=== PATIENT | male | born 1955 | race Caucasian/White ===

== ENCOUNTER 2023-02-15 12:12 | Inpatient (IN) | payer MEDICARE, MEDICAID, SELFPAY ==
[2023-02-15] VITALS (12 sets, daily range): BP systolic 88–116; BP diastolic 35–79; PULSE 83–115; RESP 16–20; TEMP 36.1–39.2; O2SAT 93–98; BMI 37.7
--- NOTE | ~2023-02-15 | CT_ITS ---
EXAMINATION: CT CHEST WITHOUT CONTRAST CLINICAL INFORMATION: Fever. Altered mental status. COMPARISON: Chest x-ray dated 02/15/2023. TECHNIQUE: Multidetector volumetric CT imaging of the chest was obtained noncontrast. Sagittal and coronal reformations were obtained. This CT examination was performed using dose optimization techniques as appropriate, variously including the following: *Automated exposure control *Adjustment of mA and/or kV according to patient size (this includes techniques or standardized protocols for targeted exams where dose is matched to indication/reason for exam; i.e. extremities or head) *Use of iterative reconstruction technique DLP: 734.30 mGy-cm. FINDINGS: LUNGS: Lungs slight thickening of the central small airways is seen with patchy areas of subtle groundglass opacity in the lungs, likely representing a diffuse viral or atypical pneumonia/bronchitis. Dependent atelectasis in the inferior aspect of the left lower lobe is seen. No significant dense consolidation is seen. No focal lung nodule or mass. No effusion or pneumothorax. Central airways patent. LYMPHOVASCULAR STRUCTURES: Ascending aorta is borderline aneurysmal, measuring 4 cm in maximal diameter just proximal to the aortic arch. Heart size normal. No pericardial effusion. No mediastinal, hilar or axillary adenopathy or free fluid collection. CORONARY ARTERY CALCIFICATION: Severe coronary artery calcifications are seen primarily involving the left anterior descending coronary artery. THYROID GLAND: Unremarkable to the extent included. UPPER ABDOMEN: Multiple gallstones are seen within the gallbladder, which is otherwise unremarkable. Diffuse pancreatic parenchymal atrophy and fatty infiltration is seen in the included portions of the pancreas. Multiple calcified granulomas are noted in the spleen. Included portions of the solid organs in the upper abdomen otherwise unremarkable. BONES: Diffuse osteopenia. 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 No suspicious focal findings. CT/CT chest wo IV con IMPRESSION: 1. Above described lung findings may be due to diffuse viral or atypical pneumonia/bronchitis. 2. Borderline aneurysmal ascending aorta. 3. Severe coronary artery calcifications. 4. Cholelithiasis with no evidence of acute cholecystitis. 5. Diffuse pancreatic parenchymal atrophy and fatty infiltration. 6. Osteopenia with findings suspicious for ankylosing spondylitis.
--- NOTE | ~2023-02-15 | CT_ITS ---
EXAMINATION: CT abdomen pelvis w IV con CLINICAL INFORMATION: Reason for Exam fever, ams COMPARISON: No prior CT available for comparison. TECHNIQUE: Multidetector volumetric imaging was performed from the superior aspect of the liver through the pubic symphysis IV contrast injected. Sagittal and coronal reformatted images were obtained on the technologist's workstation. This CT examination was performed using dose optimization techniques as appropriate, variously including the following: *Automated exposure control *Adjustment of mA and/or kV according to patient size (this includes techniques or standardized protocols for targeted exams where dose is matched to indication/reason for exam; i.e. extremities or head) *Use of iterative reconstruction technique DLP: 2331 mGy-cm FINDINGS: LOWER THORAX: Mild atelectasis at left lung base. HEPATOBILIARY: No focal hepatic lesions. No biliary ductal dilatation. GALLBLADDER: There are multiple gallstones. SPLEEN: There are calcified granulomas, spleen mildly enlarged measuring 14.1 cm. PANCREAS: Pancreas is atrophic. No pancreatic mass. STOMACH AND GASTROINTESTINAL TRACT: Stomach is grossly unremarkable. There is no bowel distention or thickening. There is diverticulosis without evidence of acute diverticulitis. ADRENALS: No adrenal nodules. KIDNEYS/URETERS: There is left perinephric fat stranding, subtle loss of normal cortical medullary distinction of the left kidney raising concern for nephritis. There is no evidence of nephroma or abscess at this time. This has especially involving the upper half of the left kidney. There is 5 mm nonobstructing stone upper calyx. No kidney stone or hydronephrosis. Right kidney unremarkable. URINARY BLADDER: There is circumferential wall thickening of the urinary bladder combined with mild pericystic fat stranding, although nonspecific commonly associated with chronic outflow obstruction or cystitis. PELVIC VISCERA: Unremarkable PERITONEUM: No free air or fluid. LYMPH NODES: No lymphadenopathy. VASCULAR:There are aortic vascular calcifications. No aneurysm. BONES, ABDOMINAL WALL AND SOFT TISSUES: Age-appropriate changes of the spine and skeletal system, no destructive osteolytic or osteosclerotic bone lesion found CT/CT abdomen pelvis w IV con IMPRESSION: * There is left perinephric fat stranding, subtle loss of normal cortical medullary distinction of the left kidney raising concern for underlying diffuse cortical process including possible infection nephritis. There is no evidence of nephroma or abscess at this time. This has especially involving the upper half of the left kidney. * There is 5 mm nonobstructing stone upper calyx left kidney. * There is circumferential wall thickening thickened trabeculation of the urinary bladder combined with mild pericystic fat stranding, although nonspecific commonly associated with chronic outflow obstruction or cystitis. * Diverticulosis without evidence of acute diverticulitis. * Cholelithiasis. * Splenomegaly.
--- NOTE | ~2023-02-15 | CT_ITS ---
EXAMINATION: CT HEAD WITHOUT CONTRAST CLINICAL INFORMATION: Altered mental status. Nonverbal. COMPARISON: None available. TECHNIQUE: Contiguous axial imaging was performed from the skull base to vertex without intravenous administration of contrast. This CT examination was performed using dose optimization techniques as appropriate, variously including the following: *Automated exposure control *Adjustment of mA and/or kV according to patient size (this includes techniques or standardized protocols for targeted exams where dose is matched to indication/reason for exam; i.e. extremities or head) *Use of iterative reconstruction technique DLP: 739 mGy-cm FINDINGS: No intracranial hemorrhage, extra-axial fluid collection, focal mass effect or midline shift. There is atherosclerotic calcification of cavernous carotid arteries. No evidence of a dense cerebral artery sign. The mishra-white matter differentiation is maintained. No acute major vascular territory infarction. There appears to be mild patchy hypoattenuation within supratentorial white matter; this is compatible with sequela of mild microangiopathy. Kkby-vl-[id number] parenchymal volume loss with commensurate prominence of ventricles and sulci. No acute findings within the posterior fossa. The cerebellar tonsils are in normal position. Small amount mucus is seen along the posterior wall of the left maxillary sinus and posterior wall of sphenoid sinus. No air-fluid levels within the paranasal sinuses. The temporomandibular joints and orbits are unremarkable. CT/CT head/brain wo IV con IMPRESSION: No intracranial mass, hemorrhage or other acute intracranial pathology.
--- NOTE | ~2023-02-15 | XR_ITS ---
EXAMINATION: XR chest 1V CLINICAL INFORMATION: Reason for Exam fever COMPARISON: None TECHNIQUE: XR chest 1V Tubes and lines: None Lungs and pleura: Mild interstitial and peribronchial cuffing might be small airway disease, no dense focal consolidation lobar pneumonia. Blunting of left costophrenic angle possible underlying subpulmonic pleural effusion. Heart and mediastinum: Heart and mediastinum are widened exaggerated by AP technique.. Bones/soft tissue: Skeletal structures included are normal for patient's age. XR/XR chest 1V IMPRESSION: * Mild interstitial and peribronchial cuffing might be small airway disease. * No dense focal consolidation lobar pneumonia. * Blunting of left costophrenic angle possible underlying subpulmonic pleural effusion.
--- NOTE | 2023-02-15 12:20 | ED_ITS ---
HPI - General Adult General Chief complaint: Fever Stated complaint: INCR AMS,FEVER 102.7 X24 HRS,FROM SNF PER EMS Time Seen by Provider: 02/15/23 12:15 Source: patient, EMS, RN notes reviewed and old records reviewed History of Present Illness HPI narrative: 67-year-old male with a past medical history of dementia, schizophrenia, COPD, AFib, obesity, HTN, HLD, dysphagia, hemiplegia and hemiparesis s/p CVA, presenting to the ED via EMS from [facility] for temp 102.9 degrees, increasing lethargy, tachycardia and being nonverbal since yesterday. Given Tylenol T[employer]. Remaining history limited due to patient's acute mental status Onset (ago): day(s) Related Data Home Medications Medication Instructions Recorded Confirmed atorvastatin 10 mg tablet 10 mg PO BEDTIME 02/15/23 02/15/23 divalproex 250 mg tablet,delayed 500 mg PO BID 02/15/23 02/15/23 release divalproex 250 mg tablet,delayed 750 mg PO BEDTIME 02/15/23 02/15/23 release finasteride 5 mg tablet 5 mg PO DAILY 02/15/23 02/15/23 multivitamin 1 tab PO DAILY 02/15/23 02/15/23 oxazepam 15 mg capsule 15 mg PO BEDTIME 02/15/23 02/15/23 rivaroxaban 15 mg tablet (Xarelto) 15 mg PO DAILY@1800 02/15/23 02/15/23 tamsulosin 0.4 mg capsule 0.4 mg PO BEDTIME 02/15/23 02/15/23 Allergies Allergy/AdvReac Type Severity Reaction Status Date / Time No Known Allergies Allergy Verified 02/15/23 12:30 Review of Systems Review of Systems: Constitutional: + Fever, + Fatigue, + Malaise Neuro: +AMS ROS limited due to patient's acute mental status Yes all other systems are reviewed and are negative Constitutional: Constitutional: Reports as per HPI Neurologic: Reports confusion (Does not know President) Psychiatric: Psychiatric: Reports confusion (Does not know President) [facility] Past Medical History Attestation statement: The following information was validated with the patient. Social History Social History Advance Directives: No Advance Directives Information Provided: No Physical Exam ED Vital Signs: Vital Signs - 24 hr 02/15/23 12:22 02/15/23 13:25 02/15/23 12:48 Temperature 102.5 F H Pulse Rate 112 H 112 H 105 H Respiratory Rate 20 20 Blood Pressure 94/61 94/61 109/60 Pulse Oximetry 93 93 93 Oxygen Delivery Method Room Air Room Air Room Air 02/15/23 14:40 02/15/23 15:47 02/15/23 15:03 Temperature Pulse Rate 86 Respiratory Rate 16 Blood Pressure 116/61 94/55 L 105/61 Pulse Oximetry 95 Oxygen Delivery Method Room Air 02/15/23 15:35 Temperature Pulse Rate Respiratory Rate Blood Pressure 107/50 L Pulse Oximetry Oxygen Delivery Method BMI result Body Mass Index 37.7 Const Other: Easily arousable General: cooperative, no acute distress, confusion (Does not know President) and lethargic Orientation/consciousness: oriented to person, oriented to place, oriented to time, confusion (Does not know President) and lethargic Limitations: no limitations HENMT Head: Yes normal to inspection and Yes atraumatic Ears: hearing grossly normal bilaterally General nose exam: Normal external nose present Face and sinus: Yes normal facial exam Eyes General: appearance normal, both eyes and all related structures EOM: EOMs intact bilaterally Neck Neck: Yes normal visual inspection and Yes no meningeal signs Resp Effort & Inspection: normal respiratory effort and no respiratory distress Auscultation: diminished lung sounds bilateral in the lower lung rosenberg Cardio Rate: regular rate Heart sounds: S1 normal heart sound present and S2 normal heart sound present GI Inspection: Yes normal to inspection Palpation (GI): Soft to palpation, nontender, no guarding and not rigid Skin Rashes: no rashes Wounds: no wounds Neuro General: oriented to person, oriented to place, oriented to time, tone normal, moves all extremities, no meningeal signs, no focal motor deficits, CN's II-XI intact bilaterally and confusion (Does not know President) Extrem Other: + bilateral LE 1+ pitting edema Course Course Course Narrative: -1339--noted leukocytosis of 22.1. H&H stable. BUN mildly elevated. Lactic acid 2.9 -AST mildly elevated. BNP 224, troponin 40.7 > will obtain 3 hour repeat -1423--COVID-19/influenza/RSV negative XR chest 1V IMPRESSION: *? Mild interstitial and peribronchial cuffing might be small airway disease. *? No dense focal consolidation lobar pneumonia. *? Blunting of left costophrenic angle possible underlying subpulmonic pleural effusion. ? > will obtain CT chest/abdomen/pelvis for further evaluation CT head/brain wo IV con IMPRESSION: No intracranial mass, hemorrhage or other acute intracranial pathology. CT chest wo IV con IMPRESSION: 1.? Above described lung findings may be due to diffuse viral or atypical pneumonia/bronchitis. 2.? Borderline aneurysmal ascending aorta. 3.? Severe coronary artery calcifications. 4.? Cholelithiasis with no evidence of acute cholecystitis. 5.? Diffuse pancreatic parenchymal atrophy and fatty infiltration. 6.? Osteopenia with findings suspicious for ankylosing spondylitis. CT abdomen pelvis w IV con IMPRESSION:? *? There is left perinephric fat stranding, subtle loss of normal cortical medullary distinction of the left kidney raising concern for underlying diffuse cortical process including possible infection nephritis. There is no evidence of nephroma or abscess at this time. This has especially involving the upper half of the left kidney. ? *? There is 5 mm nonobstructing stone upper calyx left kidney. ? *? There is circumferential wall thickening thickened trabeculation of the urinary bladder combined with mild pericystic fat stranding, although nonspecific commonly associated with chronic outflow obstruction or cystitis. ? *? Diverticulosis without evidence of acute diverticulitis. ? *? Cholelithiasis. ? *? Splenomegaly. ? >> plan to admit for further management -1704--UA infected Medications Administered Generic Name Dose Route Start Last Admin Trade Name Freq PRN Reason Stop Dose Admin Sodium Chloride 1,000 mls @ 75 mls/hr 02/15/23 13:45 02/15/23 14:30 Ns IVCONT 75 mls/hr .[id number] JES Administration Discontinued Medications Generic Name Dose Route Start Last Admin Trade Name Freq PRN Reason Stop Dose Admin Acetaminophen 650 mg 02/15/23 12:30 02/15/23 13:11 Acetaminophen 325 Mg Tablet PO 02/15/23 12:31 650 mg ONCE ONE Administration Sodium Chloride 1,000 mls @ 999 mls/hr 02/15/23 12:30 02/15/23 14:30 Ns IV 02/15/23 13:30 Infused .[id number] JES Infusion Cefepime HCl 2 gm/ Sodium 50 mls @ 100 mls/hr 02/15/23 12:32 02/15/23 13:48 Chloride IV 02/15/23 13:01 Infused ONCE ONE Infusion Iohexol 85 ml 02/15/23 15:24 02/15/23 15:24 Iohexol 350 Mg/Ml 100 Ml Infus..Btl IV 02/15/23 15:25 85 ml ONCE ONE Administration Medical Decision Making Medical Decision Making MDM Narrative: 67-year-old male with a past medical history of dementia, schizophrenia, COPD, AFib, obesity, HTN, HLD, dysphagia, hemiplegia and hemiparesis s/p CVA, pres enting to the ED via EMS from [facility] for temp 102.9 degrees, increasing lethargy, tachycardia and being nonverbal since yesterday. On exam febrile to 102.5, tachycardic, lethargic, easily arousable, A&O x3, mildly confused, warm to touch, lungs are diminished lung sounds bibasilar, abdomen soft/nontender. Concern for infectious etiology including pneumonia vs UTI vs viral syndrome. Lower suspicion for intra-abdominal pathology at this time. Low suspicion for CVA Plan: EKG, labs, UA, CXR, head CT, lactic/blood cultures, IVF, IV antibiotics, admission Please refer to course for remaining clinical decision making, interpretation of labs/imaging results, and discussions with consultants and/or family members. Differential Diagnosis Differential Diagnoses: The differential diagnosis associated with the presentation includes As above Admission/Observation Consideration of admission/observation: Escalation of care including admission/observation considered Lab Data MDM Lab Attestation statement: I reviewed the patient's lab results. 02/15/23 12:49 02/15/23 12:49 Labs: Lab Results 02/15/23 02/15/23 02/15/23 Range/Units 12:34 12:41 12:46 WBC (4.8-10.8) X10*3/uL RBC (4.60-5.80) X10*6/uL Hgb (14.0-18.0) g/dl Hct (42.0-52.0) % MCV (80.0-98.0) fL MCH (27.0-33.0) pg MCHC (31.0-36.0) g/dl RDW (11.0-16.0) % Plt Count (160-400) X10*3/uL MPV (9.4-12.4) fL Immature Gran % (Auto) Neut % (Auto) Lymph % (Auto) [place] % (Auto) Eos % (Auto) Baso % (Auto) Lymph # (Auto) [place] # (Auto) Eos # (Auto) Baso # (Auto) Abs Immat Gran (auto) Absolute Neuts (auto) Absolute Nucleated RBC (0.0-0.012) X10*3/uL Nucleated RBC % (auto) (0.0-0.2) /100WBC Neutrophils % (Manual) (45-73) % Band Neutrophils % (3-5) % Lymphocytes % (Manual) (20-40) % Monocytes % (Manual) (2-11) % Abs Neuts (Manual) (2.0-8.3) X10*3/uL Lymphocytes # (Manual) (1.2-4.9) X10*3/uL Monocytes # (Manual) (0.1-1.2) X10*3/uL Toxic Vacuolation Platelet Estimate (NORMAL) Plt Morphology Comment RBC Morphology PT (10.0-13.1) SEC INR (0.9-1.1) Sodium (135-145) mmol/L Potassium (3.3-5.1) mmol/L Chloride (96-108) mmol/L Carbon Dioxide (22-29) mmol/L Anion Gap (12-20) BUN (9-16) mg/dL Creatinine (0.5-1.4) mg/dL Estim Creat Clear Calc Estimated GFR POC Glucose 134 H (60-115) mg/dL Random Glucose (60-115) mg/dL Lactic Acid 2.9 H* (0.5-2.0) mmol/L Lactic Acid F/U @ 2Hr (0.5-2.0) mmol/L Calcium (8.4-10.2) mg/dL Magnesium (1.6-2.6) mg/dL Total Bilirubin (0.0-1.0) mg/dL Direct Bilirubin (0.0-0.5) mg/dL AST (5-37) U/L ALT (0-40) U/L Alkaline Phosphatase (39-117) U/L Troponin I High Sens (<3.5-35.0) ng/L B-Natriuretic Peptide (<100) pg/mL Total Protein (6.5-8.0) g/dL Albumin (3.5-5.0) g/dL Lipase (8-78) U/L Urine Color Urine Appearance Urine pH (5.0-9.0) Ur Specific Dag[place] (1.005-1.025) Urine Protein (Neg-Trace) mg/dL Urine Glucose (UA) (Negative) mg/dL Urine Ketones (Negative) mg/dL Urine Blood (Negative) Urine Nitrite (Negative) Ur Leukocyte Esterase (Negative) Urine RBC (0-2) /HPF Urine WBC (0-5) /HPF Ur Squamous Epith Cells (0-2) /HPF Urine Bacteria (None Seen) Hyaline Casts (0-2) /LPF Influenza Type A (PCR) NEGATIVE (Negative) Influenza Type B (PCR) NEGATIVE (Negative) RSV RNA Qual (PCR) NEGATIVE (Negative) SARS-CoV-2 RNA (RT-PCR) NEGATIVE (Negative) 02/15/23 02/15/23 02/15/23 Range/Units 12:46 12:49 12:49 WBC 22.1 H (4.8-10.8) X10*3/uL RBC 4.47 L (4.60-5.80) X10*6/uL Hgb 13.3 L (14.0-18.0) g/dl Hct 40.6 L (42.0-52.0) % MCV 90.8 (80.0-98.0) fL MCH 29.8 (27.0-33.0) pg MCHC 32.8 (31.0-36.0) g/dl RDW 17.1 H (11.0-16.0) % Plt Count 156 L (160-400) X10*3/uL MPV 9.6 (9.4-12.4) fL Immature Gran % (Auto) Cancelled Neut % (Auto) Cancelled Lymph % (Auto) Cancelled [place] % (Auto) Cancelled Eos % (Auto) Cancelled Baso % (Auto) Cancelled Lymph # (Auto) Cancelled [place] # (Auto) Cancelled Eos # (Auto) Cancelled Baso # (Auto) Cancelled Abs Immat Gran (auto) Cancelled Absolute Neuts (auto) Cancelled Absolute Nucleated RBC 0.000 (0.0-0.012) X10*3/uL Nucleated RBC % (auto) 0.0 (0.0-0.2) /100WBC Neutrophils % (Manual) 53 (45-73) % Band Neutrophils % 8 H (3-5) % Lymphocytes % (Manual) 29 (20-40) % Monocytes % (Manual) 10 (2-11) % Abs Neuts (Manual) 13.5 H (2.0-8.3) X10*3/uL Lymphocytes # (Manual) 6.4 H (1.2-4.9) X10*3/uL Monocytes # (Manual) 2.2 H (0.1-1.2) X10*3/uL Toxic Vacuolation PRESENT Platelet Estimate SLIGHTLY DECREASED (NORMAL) Plt Morphology Comment NORMAL RBC Morphology NORMAL PT (10.0-13.1) SEC INR (0.9-1.1) Sodium 139 (135-145) mmol/L Potassium 3.8 (3.3-5.1) mmol/L Chloride 107 (96-108) mmol/L Carbon Dioxide 21 L (22-29) mmol/L Anion Gap 15 (12-20) BUN 19 H (9-16) mg/dL Creatinine 1.13 (0.5-1.4) mg/dL Estim Creat Clear Calc 88.2 Estimated GFR > 60 POC Glucose (60-115) mg/dL Random Glucose 145 H (60-115) mg/dL Lactic Acid (0.5-2.0) mmol/L Lactic Acid F/U @ 2Hr (0.5-2.0) mmol/L Calcium 8.3 L (8.4-10.2) mg/dL Magnesium 1.6 (1.6-2.6) mg/dL Total Bilirubin 0.9 (0.0-1.0) mg/dL Direct Bilirubin 0.2 (0.0-0.5) mg/dL AST 45 H (5-37) U/L ALT 12 (0-40) U/L Alkaline Phosphatase 35 L (39-117) U/L Troponin I High Sens 40.7 H (<3.5-35.0) ng/L B-Natriuretic Peptide (<100) pg/mL Total Protein 7.7 (6.5-8.0) g/dL Albumin 3.2 L (3.5-5.0) g/dL Lipase 12 (8-78) U/L Urine Color Urine Appearance Urine pH (5.0-9.0) Ur Specific Dag[place] (1.005-1.025) Urine Protein (Neg-Trace) mg/dL Urine Glucose (UA) (Negative) mg/dL Urine Ketones (Negative) mg/dL Urine Blood (Negative) Urine Nitrite (Negative) Ur Leukocyte Esterase (Negative) Urine RBC (0-2) /HPF Urine WBC (0-5) /HPF Ur Squamous Epith Cells (0-2) /HPF Urine Bacteria (None Seen) Hyaline Casts (0-2) /LPF Influenza Type A (PCR) (Negative) Influenza Type B (PCR) (Negative) RSV RNA Qual (PCR) (Negative) SARS-CoV-2 RNA (RT-PCR) (Negative) 02/15/23 02/15/23 02/15/23 Range/Units 12:49 16:11 16:11 WBC (4.8-10.8) X10*3/uL RBC (4.60-5.80) X10*6/uL Hgb (14.0-18.0) g/dl Hct (42.0-52.0) % MCV (80.0-98.0) fL MCH (27.0-33.0) pg MCHC (31.0-36.0) g/dl RDW (11.0-16.0) % Plt Count (160-400) X10*3/uL MPV (9.4-12.4) fL Immature Gran % (Auto) Neut % (Auto) Lymph % (Auto) [place] % (Auto) Eos % (Auto) Baso % (Auto) Lymph # (Auto) [place] # (Auto) Eos # (Auto) Baso # (Auto) Abs Immat Gran (auto) Absolute Neuts (auto) Absolute Nucleated RBC (0.0-0.012) X10*3/uL Nucleated RBC % (auto) (0.0-0.2) /100WBC Neutrophils % (Manual) (45-73) % Band Neutrophils % (3-5) % Lymphocytes % (Manual) (20-40) % Monocytes % (Manual) (2-11) % Abs Neuts (Manual) (2.0-8.3) X10*3/uL Lymphocytes # (Manual) (1.2-4.9) X10*3/uL Monocytes # (Manual) (0.1-1.2) X10*3/uL Toxic Vacuolation Platelet Estimate (NORMAL) Plt Morphology Comment RBC Morphology PT 18.1 H (10.0-13.1) SEC INR 1.6 H (0.9-1.1) Sodium (135-145) mmol/L Potassium (3.3-5.1) mmol/L Chloride (96-108) mmol/L Carbon Dioxide (22-29) mmol/L Anion Gap (12-20) BUN (9-16) mg/dL Creatinine (0.5-1.4) mg/dL Estim Creat Clear Calc Estimated GFR POC Glucose (60-115) mg/dL Random Glucose (60-115) mg/dL Lactic Acid (0.5-2.0) mmol/L Lactic Acid F/U @ 2Hr (0.5-2.0) mmol/L Calcium (8.4-10.2) mg/dL Magnesium (1.6-2.6) mg/dL Total Bilirubin (0.0-1.0) mg/dL Direct Bilirubin (0.0-0.5) mg/dL AST (5-37) U/L ALT (0-40) U/L Alkaline Phosphatase (39-117) U/L Troponin I High Sens 27.4 (<3.5-35.0) ng/L B-Natriuretic Peptide 224 H (<100) pg/mL Total Protein (6.5-8.0) g/dL Albumin (3.5-5.0) g/dL Lipase (8-78) U/L Urine Color Urine Appearance Urine pH (5.0-9.0) Ur Specific [place] (1.005-1.025) Urine Protein (Neg-Trace) mg/dL Urine Glucose (UA) (Negative) mg/dL Urine Ketones (Negative) mg/dL Urine Blood (Negative) Urine Nitrite (Negative) Ur Leukocyte Esterase (Negative) Urine RBC (0-2) /HPF Urine WBC (0-5) /HPF Ur Squamous Epith Cells (0-2) /HPF Urine Bacteria (None Seen) Hyaline Casts (0-2) /LPF Influenza Type A (PCR) (Negative) Influenza Type B (PCR) (Negative) RSV RNA Qual (PCR) (Negative) SARS-CoV-2 RNA (RT-PCR) (Negative) 02/15/23 02/15/23 Range/Units 16:11 16:11 WBC (4.8-10.8) X10*3/uL RBC (4.60-5.80) X10*6/uL Hgb (14.0-18.0) g/dl Hct (42.0-52.0) % MCV (80.0-98.0) fL MCH (27.0-33.0) pg MCHC (31.0-36.0) g/dl RDW (11.0-16.0) % Plt Count (160-400) X10*3/uL MPV (9.4-12.4) fL Immature Gran % (Auto) Neut % (Auto) Lymph % (Auto) [place] % (Auto) Eos % (Auto) Baso % (Auto) Lymph # (Auto) [place] # (Auto) Eos # (Auto) Baso # (Auto) Abs Immat Gran (auto) Absolute Neuts (auto) Absolute Nucleated RBC (0.0-0.012) X10*3/uL Nucleated RBC % (auto) (0.0-0.2) /100WBC Neutrophils % (Manual) (45-73) % Band Neutrophils % (3-5) % Lymphocytes % (Manual) (20-40) % Monocytes % (Manual) (2-11) % Abs Neuts (Manual) (2.0-8.3) X10*3/uL Lymphocytes # (Manual) (1.2-4.9) X10*3/uL Monocytes # (Manual) (0.1-1.2) X10*3/uL Toxic Vacuolation Platelet Estimate (NORMAL) Plt Morphology Comment RBC Morphology PT (10.0-13.1) SEC INR (0.9-1.1) Sodium (135-145) mmol/L Potassium (3.3-5.1) mmol/L Chloride (96-108) mmol/L Carbon Dioxide (22-29) mmol/L Anion Gap (12-20) BUN (9-16) mg/dL Creatinine (0.5-1.4) mg/dL Estim Creat Clear Calc Estimated GFR POC Glucose (60-115) mg/dL Random Glucose (60-115) mg/dL Lactic Acid (0.5-2.0) mmol/L Lactic Acid F/U @ 2Hr 1.5 (0.5-2.0) mmol/L Calcium (8.4-10.2) mg/dL Magnesium (1.6-2.6) mg/dL Total Bilirubin (0.0-1.0) mg/dL Direct Bilirubin (0.0-0.5) mg/dL AST (5-37) U/L ALT (0-40) U/L Alkaline Phosphatase (39-117) U/L Troponin I High Sens (<3.5-35.0) ng/L B-Natriuretic Peptide (<100) pg/mL Total Protein (6.5-8.0) g/dL Albumin (3.5-5.0) g/dL Lipase (8-78) U/L Urine Color Yellow Urine Appearance Hazy Urine pH 5.5 (5.0-9.0) Ur Specific [place] 1.010 (1.005-1.025) Urine Protein 30 (1+) H (Neg-Trace) mg/dL Urine Glucose (UA) Negative (Negative) mg/dL Urine Ketones Negative (Negative) mg/dL Urine Blood Large (3+) H (Negative) Urine Nitrite Negative (Negative) Ur Leukocyte Esterase Trace H (Negative) Urine RBC >20 H (0-2) /HPF Urine WBC >50 H (0-5) /HPF Ur Squamous Epith Cells 3-5 (0-2) /HPF Urine Bacteria None Seen (None Seen) Hyaline Casts 0-2 (0-2) /LPF Influenza Type A (PCR) (Negative) Influenza Type B (PCR) (Negative) RSV RNA Qual (PCR) (Negative) SARS-CoV-2 RNA (RT-PCR) (Negative) Radiology Impression Discussion of test interpretation with radiology: I have reviewed the radiologist's reading. External Record Review External record reviewed: Inpatient record, Office record, Outpatient record, Prior outpatient labs, Prior outpatient radiology, Primary care record and Outside ED record Critical Care Time Critical Care Time Critical Care Time: Yes Total Critical Care Time: 50 Attestation: I have personally provided critical care time exclusive of time spent on separately billable procedures. Time includes review of lab data, radiology results, discussion with consultants, and monitoring for potential decompensation. Intervention performed as documented. Discharge Plan Discharge Clinical Impression: Atypical pneumonia, Acute UTI, Altered mental status Patient Disposition: Admitted As Inpatient
--- NOTE | 2023-02-15 12:30 | ECG_ITS ---
Test Reason : SEPSIS Blood Pressure : / mmHG Vent. Rate : 097 BPM Atrial Rate : 097 BPM P-R Int : 174 ms QRS Dur : 084 ms QT Int : 354 ms P-R-T Axes : 049 045 052 degrees QTc Int : 449 ms Sinus rhythm with Premature supraventricular complexes Nonspecific ST and T wave abnormality Abnormal ECG No previous ECGs available Referred By: Isabelle Duncan Electronically Signed By:RENNY CAMPO MD
[2023-02-15 12:38] LABS: Glucose, Whole Blood 134 mg/dL (60-115)
[2023-02-15 12:58] LABS: Hematocrit 40.6 % (42.0-52.0); Hemoglobin 13.3 g/dl (14.0-18.0); Mean Corpuscular HGB Conc 32.8 g/dl (31.0-36.0); Mean Corpuscular Hemoglobin 29.8 pg (27.0-33.0); Mean Corpuscular Volume 90.8 fL (80.0-98.0); Mean Platelet Volume 9.6 fL (9.4-12.4); Platelet Count 156 X10*3/uL (160-400); Red Blood Count 4.47 X10*6/uL (4.60-5.80); Red Cell Distribution Width 17.1 % (11.0-16.0); White Blood Count 22.1 X10*3/uL (4.8-10.8)
[2023-02-15] MEDS: cefEPime HCl 2 GM in 0.9 % Sodium Chloride 50 ML IV (13:11)
[2023-02-15] MEDS: Acetaminophen 325 MG TABLET 650 MG PO ×2 (13:11→17:46)
[2023-02-15] MEDS: 0.9 % Sodium Chloride 1,000 ML 999 ML IV (13:17)
[2023-02-15 13:22] LABS: B Type Natriuretic Peptide 224 pg/mL (<100)
[2023-02-15 13:23] LABS: Influenza A PCR NEGATIVE (Negative); Influenza B PCR NEGATIVE (Negative); Resp Syncy Virus RNA Qual PCR NEGATIVE (Negative); SARS COV2 PCR INHOUSE NEGATIVE (Negative)
[2023-02-15 13:24] LABS: Troponin-I High Sensitivity 40.7 ng/L (<3.5-35.0)
[2023-02-15 13:33] LABS: Band Neutrophils Percent 8 % (3-5); Lymphocytes Absolute Manual 6.4 X10*3/uL (1.2-4.9); Lymphocytes Percent Manual 29 % (20-40); Monocytes Absolute Manual 2.2 X10*3/uL (0.1-1.2); Monocytes Percent Manual 10 % (2-11); Neutrophils Absolute Manual 13.5 X10*3/uL (2.0-8.3); Neutrophils Percent Manual 53 % (45-73); Platelet Estimate SLIGHTLY DECREASED (NORMAL); Platelet Morphology Comment NORMAL; RBC Morphology NORMAL; Toxic Vacuolation PRESENT
[2023-02-15 13:35] LABS: Alanine Aminotransferase 12 U/L (0-40); Albumin Level 3.2 g/dL (3.5-5.0); Alkaline Phosphatase 35 U/L (39-117); Anion Gap 15 (12-20); Aspartate Amino Transferase 45 U/L (5-37); Bilirubin Direct 0.2 mg/dL (0.0-0.5); Bilirubin Total 0.9 mg/dL (0.0-1.0); Blood Urea Nitrogen 19 mg/dL (9-16); Calcium 8.3 mg/dL (8.4-10.2); Carbon Dioxide 21 mmol/L (22-29); Chloride 107 mmol/L (96-108); Creatinine Clr Calc Pharmacy 88.2; Estimated Glomerular Filt Rate > 60; Glucose Random 145 mg/dL (60-115); Lipase 12 U/L (8-78); Magnesium 1.6 mg/dL (1.6-2.6); Potassium 3.8 mmol/L (3.3-5.1); Sodium 139 mmol/L (135-145); Total Protein 7.7 g/dL (6.5-8.0)
[2023-02-15 13:37] LABS: Lactic Acid 2.9 mmol/L (0.5-2.0)
--- NOTE | 2023-02-15 14:04 | PHA.MEDREC ---
Pharmacy Consult ? Medication Reconciliation Pharmacy has completed the medication reconciliation. Patient had a list from [facility].
[2023-02-15] MEDS: 0.9 % Sodium Chloride 1,000 ML 75 ML IVCONT (14:30)
--- NOTE | 2023-02-15 14:31 | PC.NURSE ---
PT FROM [facility] VIA EMS WITH CHEIF COMPLAINTS OF FEVER THAT STARTED YESTERDAY. PT HAD 102.7 FEVER EARLIER TODAY, LETHARGY, CONFUSION. NOT HIS BASELINE. TEMP HERE 102.5 RECTAL, B/P SOFT. PT DENIED PAIN. O2 SAT 90-93% R/A. PT ARRIVED W/18g IV IN L HAND INSERTED BY EMS.
[2023-02-15 14:49] LABS: Reflex Lactate? Lactic Acid Added
[2023-02-15] MEDS: iohexoL 350 MG/ML 100 ML INFUS..BTL 85 ML IV (15:24)
--- NOTE | 2023-02-15 15:52 | PC.NURSE ---
Multiple attempts to insert whitlock, unable too. PA aware. Pt incon of urine multple times, dark in color and odorous
--- NOTE | 2023-02-15 16:16 | PC.NURSE ---
SEPTIC PROTOCOL INITIATED AND COMPLETED DOCUMENTED.
[2023-02-15 16:22] LABS: Appearance Urine Hazy; Color Urine Yellow; Glucose Urine UA Negative (Negative); Leukocyte Esterase Urine Trace (Negative); Nitrite Urine Negative (Negative); PH 5.5 (5.0-9.0); UMIC TRIGGER UACC YES; Urine Blood Large (3+) (Negative); Urine Ketones Negative (Negative); Urine Protein 30 (1+) mg/dL (Neg-Trace)
[2023-02-15 16:26] LABS: INTERNATIONAL NORM RATIO 1.6 (0.9-1.1); Prothrombin Time 18.1 SEC (10.0-13.1)
[2023-02-15 16:30] LABS: ~Lactic Acid-LAB USE ONLY 1.5 mmol/L (0.5-2.0)
[2023-02-15 16:43] LABS: Troponin-I High Sensitivity 27.4 ng/L (<3.5-35.0)
[2023-02-15 16:52] LABS: Bacteria Urine None Seen (None Seen); Hyaline Casts Urine 0-2 /LPF (0-2); RBC Urine >20 /HPF (0-2); UACC Culture Trigger YES; WBC Urine >50 /HPF (0-5)
--- NOTE | 2023-02-15 17:29 | P.HPHOSP_ITS ---
History of Present Illness Date of Service: 02/15/23 Attending physician on admission: Didier Kennedy Chief Complaint: Lethargy, AMS Pt is a 67-year-old male with a PMH significant for?dementia, schizophrenia, COPD, AFib on Xarelto, HTN, HLD, dysphagia, and CVA who presents to the ED via E [facility] from [facility] with temperature of 102.9 degrees, increased lethargy, tachycardia, and altered mental status since yesterday. Pt is currently confused, unaware of his situation, somnolent, and slow to respond to inquiries; HPI obtained from chart review and staff at [facility]. At baseline patient is apparently quite verbal and capable of making his demands known. Is able to ambulate short distances with 1 assist and capable of feeding himself. Pt is unaware of why he is in the hospital. Complains only of dysuria. Denies chest pain/pressure, difficulty breathing. No cough. In the ED patient was febrile at 102.5, tachycardic up to 112, and hypotensive at 94/55. Labs were significant for leukocytosis of 22.1, lactic acid of 2.9 with repeat normalized to 1.5, initial troponin elevated 40.7 with repeat down trending to 27.4, elevated BNP of 224. UA positive for 3+ blood, trace leukocyte esterase, greater than 20 RBC, greater than 50 WBC, with no bacteria seen. CXR showed mild interstitial and peribronchial cuffing that migh be small airway disease, and blunting of the left costophrenic angle possibly an underlying sub pulmonic pleural effusion, but no dense focal consolidations, CT ?of head showed no intracranial mass, hemorrhage, or other acute intracranial pathology. CT of chest showing possible diffuse viral or atypical pneumonia/bronchitis. Other findings included borderline aneurysm of the ascending aorta, severe coronary artery calcifications, coli lithiasis, diffuse pancreatic parenchymal atrophy and fatty infiltration, and osteopenia suspicious for anxiolysis and spondylolysis. CT of abdomen and pelvis found possible infection nephritis, circumferential wall thickening and thickened trabeculation the urinary bladder that is nonspecific but commonly associated with chronic outflow obstruction or cystitis, diverticulosis without diverticulitis, cholelithiasis, and splenomegaly. EKG demonstrated sinus rhythm with no evidence of ST elevations or depressions. Pt was treated with Tylenol, cefepime, and IV fluid. Pt will be admitted to the hospital for treatment and further evaluation of altered mental status in the setting of likely infection. Review of Systems Review of Systems: Pt complains of dysuria ROS difficult to obtain d/t altered mental status PMFSH Social History Household Members: None Housing: Long Term Do you presently have visiting nurse or other home services: No Unable to assess alcohol history related to: Unknown Patient Tobacco Use Status: Tobacco use Unknown Use of substances other than those prescribed or required for medical reasons: Unknown Advance Directives: No Advance Directives Information Provided: No Do you have thoughts of harming others: None Do you have a plan to hurt others: No Plan Nutrition Risks: No Nutritional Risk Poor oral hygiene: No Meds Allergies Allergy/AdvReac Type Severity Reaction Status Date / Time No Known Allergies Allergy Verified 02/15/23 12:30 Active Medications: Current Medications Sodium Chloride (Ns) 1,000 mls @ 75 mls/hr IVCONT .[id number] JES Last Admin: 02/15/23 14:30 Dose: 75 mls/hr Home Medications Medication Instructions Recorded Confirmed Last Taken Type atorvastatin 10 mg tablet 10 mg PO BEDTIME 02/15/23 02/15/23 02/14/23 History divalproex 250 mg tablet,delayed 500 mg PO BID 02/15/23 02/15/23 02/15/23 09:00 History release divalproex 250 mg tablet,delayed 750 mg PO BEDTIME 02/15/23 02/15/23 02/14/23 History release finasteride 5 mg tablet 5 mg PO DAILY 02/15/23 02/15/23 02/15/23 History multivitamin 1 tab PO DAILY 02/15/23 02/15/23 02/15/23 History oxazepam 15 mg capsule 15 mg PO BEDTIME 02/15/23 02/15/23 02/14/23 History rivaroxaban 15 mg tablet (Xarelto) 15 mg PO DAILY@1800 02/15/23 02/15/23 02/14/23 History tamsulosin 0.4 mg capsule 0.4 mg PO BEDTIME 02/15/23 02/15/23 02/14/23 History Physical Exam Vital Signs and Narrative: Vital Signs: Last Vital Signs Temp 100.8 F H 02/15/23 17:14 Pulse 86 02/15/23 15:47 Resp 16 02/15/23 15:47 BP 94/55 L 02/15/23 15:47 Pulse Ox 95 02/15/23 15:47 O2 Del Method Room Air 02/15/23 15:47 BMI result Body Mass Index 37.7 Constitutional: Patient is confused, somnolent, arousable, but difficult to keep awake, drifting in and out of sleep. In no acute distress. Mental Status: Oriented to person and time, but neither to place nor situation. Eyes: Pupils are equal, round, and reactive to light. Ear, Nose, and Throat: Oropharynx clear, mucous membranes moist. Ears and nose without deformities. Trachea midline. Respiratory: Clear to auscultation bilaterally. No wheezing, rales, or rhonchi. Cardiovascular: S1, S2 regular. No murmurs, rubs, or gallops. Gastrointestinal: Abdomen soft, obese, non-tender, non-distended. Normal bowel sounds. Neurologic: Cranial nerves II-XII are grossly intact bilaterally. No focal neurological deficits. Moves all extremities spontaneously. Skin: Warm, dry. Extremities: Trace bilateral pitting edema. Psychiatric: Normal mood and affect. Results Labs 02/15/23 12:49 02/15/23 12:49 Labs: Laboratory Results - last 24 hr 02/15/23 02/15/23 02/15/23 12:34 12:41 12:46 MCV MCH MCHC RDW Plt Count MPV Immature Gran % (Auto) Neut % (Auto) Lymph % (Auto) [place] % (Auto) Eos % (Auto) Baso % (Auto) Lymph # (Auto) [place] # (Auto) Eos # (Auto) Baso # (Auto) Abs Immat Gran (auto) Absolute Neuts (auto) Absolute Nucleated RBC Nucleated RBC % (auto) Neutrophils % (Manual) Band Neutrophils % Lymphocytes % (Manual) Monocytes % (Manual) Abs Neuts (Manual) Lymphocytes # (Manual) Monocytes # (Manual) Toxic Vacuolation Platelet Estimate Plt Morphology Comment RBC Morphology PT INR Anion Gap Estim Creat Clear Calc Estimated GFR POC Glucose 134 H Random Glucose Lactic Acid 2.9 H* Lactic Acid F/U @ 2Hr Calcium Magnesium Total Bilirubin Direct Bilirubin AST ALT Alkaline Phosphatase Troponin I High Sens B-Natriuretic Peptide Total Protein Albumin Lipase Urine Color Urine Appearance Urine pH Ur Specific [place] Urine Protein Urine Glucose (UA) Urine Ketones Urine Blood Urine Nitrite Ur Leukocyte Esterase Urine RBC Urine WBC Ur Squamous Epith Cells Urine Bacteria Hyaline Casts Influenza Type A (PCR) NEGATIVE Influenza Type B (PCR) NEGATIVE RSV RNA Qual (PCR) NEGATIVE SARS-CoV-2 RNA (RT-PCR) NEGATIVE 02/15/23 02/15/23 02/15/23 12:46 12:49 12:49 MCV 90.8 MCH 29.8 MCHC 32.8 RDW 17.1 H Plt Count 156 L MPV 9.6 Immature Gran % (Auto) Cancelled Neut % (Auto) Cancelled Lymph % (Auto) Cancelled [place] % (Auto) Cancelled Eos % (Auto) Cancelled Baso % (Auto) Cancelled Lymph # (Auto) Cancelled [place] # (Auto) Cancelled Eos # (Auto) Cancelled Baso # (Auto) Cancelled Abs Immat Gran (auto) Cancelled Absolute Neuts (auto) Cancelled Absolute Nucleated RBC 0.000 Nucleated RBC % (auto) 0.0 Neutrophils % (Manual) 53 Band Neutrophils % 8 H Lymphocytes % (Manual) 29 Monocytes % (Manual) 10 Abs Neuts (Manual) 13.5 H Lymphocytes # (Manual) 6.4 H Monocytes # (Manual) 2.2 H Toxic Vacuolation PRESENT Platelet Estimate SLIGHTLY DECREASED Plt Morphology Comment NORMAL RBC Morphology NORMAL PT INR Anion Gap 15 Estim Creat Clear Calc 88.2 Estimated GFR > 60 POC Glucose Random Glucose 145 H Lactic Acid Lactic Acid F/U @ 2Hr Calcium 8.3 L Magnesium 1.6 Total Bilirubin 0.9 Direct Bilirubin 0.2 AST 45 H ALT 12 Alkaline Phosphatase 35 L Troponin I High Sens 40.7 H B-Natriuretic Peptide Total Protein 7.7 Albumin 3.2 L Lipase 12 Urine Color Urine Appearance Urine pH Ur Specific [place] Urine Protein Urine Glucose (UA) Urine Ketones Urine Blood Urine Nitrite Ur Leukocyte Esterase Urine RBC Urine WBC Ur Squamous Epith Cells Urine Bacteria Hyaline Casts Influenza Type A (PCR) Influenza Type B (PCR) RSV RNA Qual (PCR) SARS-CoV-2 RNA (RT-PCR) 02/15/23 02/15/23 02/15/23 12:49 16:11 16:11 MCV MCH MCHC RDW Plt Count MPV Immature Gran % (Auto) Neut % (Auto) Lymph % (Auto) [place] % (Auto) Eos % (Auto) Baso % (Auto) Lymph # (Auto) [place] # (Auto) Eos # (Auto) Baso # (Auto) Abs Immat Gran (auto) Absolute Neuts (auto) Absolute Nucleated RBC Nucleated RBC % (auto) Neutrophils % (Manual) Band Neutrophils % Lymphocytes % (Manual) Monocytes % (Manual) Abs Neuts (Manual) Lymphocytes # (Manual) Monocytes # (Manual) Toxic Vacuolation Platelet Estimate Plt Morphology Comment RBC Morphology PT 18.1 H INR 1.6 H Anion Gap Estim Creat Clear Calc Estimated GFR POC Glucose Random Glucose Lactic Acid Lactic Acid F/U @ 2Hr Calcium Magnesium Total Bilirubin Direct Bilirubin AST ALT Alkaline Phosphatase Troponin I High Sens 27.4 B-Natriuretic Peptide 224 H Total Protein Albumin Lipase Urine Color Urine Appearance Urine pH Ur Specific [place] Urine Protein Urine Glucose (UA) Urine Ketones Urine Blood Urine Nitrite Ur Leukocyte Esterase Urine RBC Urine WBC Ur Squamous Epith Cells Urine Bacteria Hyaline Casts Influenza Type A (PCR) Influenza Type B (PCR) RSV RNA Qual (PCR) SARS-CoV-2 RNA (RT-PCR) 02/15/23 02/15/23 16:11 16:11 MCV MCH MCHC RDW Plt Count MPV Immature Gran % (Auto) Neut % (Auto) Lymph % (Auto) [place] % (Auto) Eos % (Auto) Baso % (Auto) Lymph # (Auto) [place] # (Auto) Eos # (Auto) Baso # (Auto) Abs Immat Gran (auto) Absolute Neuts (auto) Absolute Nucleated RBC Nucleated RBC % (auto) Neutrophils % (Manual) Band Neutrophils % Lymphocytes % (Manual) Monocytes % (Manual) Abs Neuts (Manual) Lymphocytes # (Manual) Monocytes # (Manual) Toxic Vacuolation Platelet Estimate Plt Morphology Comment RBC Morphology PT INR Anion Gap Estim Creat Clear Calc Estimated GFR POC Glucose Random Glucose Lactic Acid Lactic Acid F/U @ 2Hr 1.5 Calcium Magnesium Total Bilirubin Direct Bilirubin AST ALT Alkaline Phosphatase Troponin I High Sens B-Natriuretic Peptide Total Protein Albumin Lipase Urine Color Yellow Urine Appearance Hazy Urine pH 5.5 Ur Specific [place] 1.010 Urine Protein 30 (1+) H Urine Glucose (UA) Negative Urine Ketones Negative Urine Blood Large (3+) H Urine Nitrite Negative Ur Leukocyte Esterase Trace H Urine RBC >20 H Urine WBC >50 H Ur Squamous Epith Cells 3-5 Urine Bacteria None Seen Hyaline Casts 0-2 Influenza Type A (PCR) Influenza Type B (PCR) RSV RNA Qual (PCR) SARS-CoV-2 RNA (RT-PCR) Imaging Radiologist's Impressions: Impressions Chest X-Ray 02/15/23 13:07 IMPRESSION: * Mild interstitial and peribronchial cuffing might be small airway disease. * No dense focal consolidation lobar pneumonia. * Blunting of left costophrenic angle possible underlying subpulmonic pleural effusion. Head CT 02/15/23 14:25 IMPRESSION: No intracranial mass, hemorrhage or other acute intracranial pathology. Abdomen/Pelvis CT 02/15/23 15:39 IMPRESSION: * There is left perinephric fat stranding, subtle loss of normal cortical medullary distinction of the left kidney raising concern for underlying diffuse cortical process including possible infection nephritis. There is no evidence of nephroma or abscess at this time. This has especially involving the upper half of the left kidney. * There is 5 mm nonobstructing stone upper calyx left kidney. * There is circumferential wall thickening thickened trabeculation of the urinary bladder combined with mild pericystic fat stranding, although nonspecific commonly associated with chronic outflow obstruction or cystitis. * Diverticulosis without evidence of acute diverticulitis. * Cholelithiasis. * Splenomegaly. Chest CT 02/15/23 15:39 IMPRESSION: 1. Above described lung findings may be due to diffuse viral or atypical pneumonia/bronchitis. 2. Borderline aneurysmal ascending aorta. 3. Severe coronary artery calcifications. 4. Cholelithiasis with no evidence of acute cholecystitis. 5. Diffuse pancreatic parenchymal atrophy and fatty infiltration. 6. Osteopenia with findings suspicious for ankylosing spondylitis. Assessment and Plan (1) Altered mental status: Status: Acute Plan Pt is a 67-year-old male with a PMH significant for?dementia, schizophrenia, COPD, AFib on Xarelto, HTN, HLD, dysphagia, and CVA who presents to the ED via EMS from [facility] with temperature of 102.9 degrees, increased lethargy, tachycardia, and altered mental status since yesterday. Pt will be admitted to the hospital for treatment and further evaluation of altered mental status in the setting of likely infection. Altered metal status Pt lethargic, confused, slow to respond Most likely secondary to acute infection Monitor mentation Treat as below Question of pneumonia CT of chest showing possible diffuse viral or atypical pneumonia/bronchitis Viral vs atypical vs aspiration Check respiratory panel Will empirically cover with vanco and Zosyn Patient not currently on supplemental oxygen, not hypoxic Question of UTI, pyelonephritis Urine with trace leukocyte esterase, negative for nitrates and bacteria CT with findings of possible infection nephritis, and bladder wall thickening possibly suggestive of cystitis Patient complaining of dysuria Will empirically cover with vanco and Zosyn Follow cultures Sepsis Pt meets sepsis criteria: WBC, tachycardia, lactic acid Pt given IVF, on broad-spectrum abx Acute lactic acidosis, resolved Initial lactic acid 2.9, repeat 1.5 Pt given IVF Elevated troponins Initial troponin 40.7, repeat 27.4 Likely type 2 demand ischemia Pt not complaining of chest pain/pressure EKG negative for ST elevations or depressions Elevated BNP BNP elevated to 224, baseline unknown Patient with mild trace pitting edema of lower leg extremities bilaterally CT of chest and CXR negative for vascular congestion or pleural effusions Patient receiving gentle IVF resuscitation Recheck BMP tomorrow HLD Continue statin BPH BP soft, hold finasteride and tamsulosin tonight Mood disorder Continue divalproex Full Code Attending:?Dr. Kennedy DVT Prophylaxis: On Xarelto Pt will require a hospitalization of at least two nights for treatment and further evaluation of altered mental status in the setting of likely infection. Time Spent With Patient Time: Total time managing care of this patient today ____ minutes. Quality Stroke Does the patient have a stroke diagnosis?: No VTE Prior VTE?: No VTE Risk Level:: Medical - moderate - high VTE Device Contraindication: Treatment Not Indicated VTE Drug Contraindication: N/A - Med Ordered
--- NOTE | 2023-02-15 18:08 | PC.NURSE ---
BOTH INCONTINENT CARE AND BED CHANGE DONE. PT RESTING QUIETLY, IV FLUID RUNNING THROUGH L HAND IV. PT TOLERATING WELL.
--- NOTE | 2023-02-15 19:37 | PC.NURSE ---
assumed care of pt pt responds to verbal stimuli, unable to respond verbally no apparent distress not A&O, baseline
[2023-02-15] MEDS: Piperacillin Sodium/Tazobactam 4.5 GM in 0.9 % Sodium Chloride 100 ML IV (19:46)
--- NOTE | 2023-02-15 19:47 | MHC.EDTECH ---
pt responed to this technical publications writer when I asked him to open his mouth for oral temp. patient was also able to lift his arm for me as well.
--- NOTE | 2023-02-15 21:17 | PC.NURSE ---
critical lab result called in by lab, Uli Lactic Acid 2.1 Dr Bass notified via [place] [facility]
[2023-02-15 21:19] LABS: Lactic Acid 2.1 mmol/L (0.5-2.0)
--- NOTE | 2023-02-15 21:33 | PC.NURSE ---
unable to do [place] due pt having split meatus present when [place] cath placed by BRITT Sellers
--- NOTE | 2023-02-15 21:35 | PC.NURSE ---
pt incontinent of urine cleaned and dried; repositioned
--- NOTE | 2023-02-15 21:36 | PC.NURSE ---
pt able to to express some of his needs but not able to clearly state his pain level
[2023-02-15] MEDS: Divalproex Sodium 250 MG TABLET.DR 750 MG PO (22:26)
[2023-02-15] MEDS: Divalproex Sodium 500 MG TABLET.DR PO (22:26)
[2023-02-15] MEDS: Atorvastatin Calcium 10 MG TABLET PO (22:26)
[2023-02-15] MEDS: Lactated Ringers 1,000 ML 999 ML IV (22:40)
[2023-02-15 22:55] LABS: Reflex Lactate? Lactic Acid Added
[2023-02-15 23:51] LABS: ~Lactic Acid-LAB USE ONLY 4.2 mmol/L (0.5-2.0)
[2023-02-16] MEDS: Lactated Ringers 1,000 ML 999 ML IV (00:09)
[2023-02-16] MEDS: Piperacillin Sodium/Tazobactam 4.5 GM in 0.9 % Sodium Chloride 100 ML IV ×4 (00:18→18:20)
[2023-02-16 01:24] LABS: Reflex Lactate? 2 Y
[2023-02-16 02:32] LABS: ~Lactic Acid-LAB USE ONLY 3.7 mmol/L (0.5-2.0)
[2023-02-16 03:24] VITALS: BP 143/65; PULSE 100; RESP 17; TEMP 37.4; O2SAT 97
[2023-02-16] MEDS: 0.9 % Sodium Chloride 1,000 ML 75 ML IVCONT (05:09)
[2023-02-16 06:32] LABS: Hematocrit 32.1 % (42.0-52.0); Hemoglobin 10.3 g/dl (14.0-18.0); Mean Corpuscular HGB Conc 32.1 g/dl (31.0-36.0); Mean Corpuscular Hemoglobin 29.4 pg (27.0-33.0); Mean Corpuscular Volume 91.7 fL (80.0-98.0); Platelet Count 116 X10*3/uL (160-400); White Blood Count 13.5 X10*3/uL (4.8-10.8)
[2023-02-16 06:45] LABS: B Type Natriuretic Peptide 155 pg/mL (<100)
[2023-02-16 06:54] LABS: Anion Gap 10 (12-20); Blood Urea Nitrogen 18 mg/dL (9-16); Calcium 7.5 mg/dL (8.4-10.2); Carbon Dioxide 24 mmol/L (22-29); Chloride 110 mmol/L (96-108); Creatinine Clr Calc Pharmacy 124.6; Estimated Glomerular Filt Rate > 60; Glucose Random 108 mg/dL (60-115); Potassium 3.2 mmol/L (3.3-5.1); Sodium 141 mmol/L (135-145)
[2023-02-16 07:53] VITALS: BP 137/63; PULSE 104; RESP 18; TEMP 38.3; O2SAT 93
[2023-02-16] MEDS: Divalproex Sodium 500 MG TABLET.DR PO ×2 (07:57→20:05)
[2023-02-16] MEDS: Finasteride 5 MG TABLET PO (07:57)
[2023-02-16] MEDS: Multivitamin TABLET 1 TAB PO (07:57)
[2023-02-16] MEDS: Acetaminophen 325 MG TABLET 650 MG PO (07:58)
[2023-02-16] MEDS: vancomycin HCL 1,000 MG in 0.9 % Sodium Chloride 250 ML 270 MG IV (07:58)
--- NOTE | 2023-02-16 08:45 | HE.PHANOTE ---
Vanomycin Dosing SCr has improved will increase dose to vancomycin 1250 mg Q12H. new Expected AUC 459 with a trough of 14.9. Level scheduled for 02/17 @ 0600, prior to 4th dose. Panchito MastD
[2023-02-16 09:48] VITALS: TEMP 37.7
--- NOTE | 2023-02-16 10:45 | MHC.CM.PN ---
IMM DELIVERED, EXPLAINED TO SON/GUARDIAN VIA TELEPHONE, WHITE COPY TO BE MAILED, YELLOW COPY TO CHART. PT IS A LTC RESIDENT OF [facility]. USES W/C FOR MAJOR MOBILITY. +GUARDIANSHIP AT FACILITY +COVID VAX X4 PCP ODESSA MCKNIGHT DP: RESUMPTION OF LTC AT [facility] PER SON. WILL NEED BLS TRANSPORT. CM WILL CONTINUE TO FOLLOW
--- NOTE | 2023-02-16 13:36 | P.PNIM_ITS ---
Subjective Subjective Date of Service: 02/16/23 Interval History: Seen and evaluated still spiking low grade fevers more alert and interactive no reported overnight events Review of Systems Review of Systems: Yes all other systems are reviewed and are negative Physical Exam Vital Signs: Vital Signs: Last Vital Signs Temp 99.8 F 02/16/23 09:48 Pulse 104 H 02/16/23 07:53 Resp 18 02/16/23 07:53 BP 137/63 02/16/23 07:53 Pulse Ox 93 02/16/23 07:53 O2 Del Method Room Air 02/16/23 07:53 BMI result Body Mass Index 37.7 Const: Other: Constitutional : Awake, interactive, not in distress Neck : Normal inspection, Supple Cardiovascular : RRR, no JVP, no lower extremity edema Respiratory : good bilateral air entry, basal bilateral fine crackles, no wheezes or rhonchi Gastrointestinal: soft, lax, Normal bowel sounds, Non tender Skin : Warm, Dry Neurological : Alert & oriented to self, No focal deficit Objective Data Active Medications Acetaminophen (Acetaminophen 325 Mg Tablet) 650 mg PO Q6H PRN PRN Reason: Pain, Mild (Pain Scale 1-3) Last Admin: 02/16/23 07:58 Dose: 650 mg Documented By: YONATAN Atorvastatin Calcium (Atorvastatin Calcium 10 Mg Tablet) 10 mg PO BEDTIME [facility] Last Admin: 02/15/23 22:26 Dose: 10 mg Documented By: DENA Divalproex Sodium (Divalproex Sodium 500 Mg Tablet.) 500 mg PO BID [facility] Last Admin: 02/16/23 07:57 Dose: 500 mg Documented By: YONATAN Divalproex Sodium (Divalproex Sodium 250 Mg Tablet.) 750 mg PO BEDTIME [facility] Last Admin: 02/15/23 22:26 Dose: 750 mg Documented By: DENA Docusate Sodium (Docusate Sodium 100 Mg Capsule) 100 mg PO DAILY PRN PRN Reason: Constipation Finasteride (Finasteride 5 Mg Tablet) 5 mg PO DAILY [facility] Last Admin: 02/16/23 07:57 Dose: 5 mg Documented By: YONATAN Sodium Chloride (Ns) 1,000 mls @ 75 mls/hr IVCONT .[id number] [facility] Last Infusion: 02/16/23 06:41 Dose: 75 mls/hr Documented By: DENA Piperacillin Sod/Tazobactam (Sod 4.5 gm/ Sodium Chloride) 100 mls @ 200 mls/hr IV Q6H [facility] Last Admin: 02/16/23 13:13 Dose: 200 mls/hr Documented By: YONATAN Vancomycin HCl 1,250 mg/ (Sodium Chloride) 250 mls @ 166.667 mls/hr IV Q12H [facility] Multivitamins/Vitamin C (Multivitamin Tablet) 1 tab PO DAILY [facility] Last Admin: 02/16/23 07:57 Dose: 1 tab Documented By: YONATAN Non-Formulary Medication (Oxazepam) 15 mg PO BEDTIME [facility] Pharmacy Consult (Consult Rx Vancomycin Dosing) 1 each MISCELLANE DAILY PRN PRN Reason: Consult order Rivaroxaban (Rivaroxaban 15 Mg Tablet) 15 mg PO DAILY@1800 [facility] Sodium Chloride (0.9 % Sodium Chloride Flush 3 Ml Syringe) 3 ml IVFLUSH QSHIFT [facility] Last Admin: 02/16/23 07:33 Dose: Not Given Documented By: YONATAN Non-Admin Reason: IV Running Tamsulosin HCl (Tamsulosin Hcl 0.4 Mg Capsule) 0.4 mg PO BEDTIME [facility] Labs 02/16/23 05:33 02/16/23 05:33 Labs: Laboratory Results - last 24 hr 02/15/23 02/15/23 02/15/23 12:41 12:46 16:11 MCV MCH MCHC RDW Plt Count MPV Absolute Nucleated RBC Nucleated RBC % (auto) PT 18.1 H INR 1.6 H Anion Gap Estim Creat Clear Calc Estimated GFR Random Glucose Lactic Acid 2.9 H* Lactic Acid F/U @ 2Hr Lactic Acid F/U @ 4Hr Calcium Troponin I High Sens B-Natriuretic Peptide Urine Color Urine Appearance Urine pH Ur Specific [place] Urine Protein Urine Glucose (UA) Urine Ketones Urine Blood Urine Nitrite Ur Leukocyte Esterase Urine RBC Urine WBC Ur Squamous Epith Cells Urine Bacteria Hyaline Casts Influenza Type A (PCR) NEGATIVE Influenza Type B (PCR) NEGATIVE RSV RNA Qual (PCR) NEGATIVE SARS-CoV-2 RNA (RT-PCR) NEGATIVE 02/15/23 02/15/23 02/15/23 16:11 16:11 16:11 MCV MCH MCHC RDW Plt Count MPV Absolute Nucleated RBC Nucleated RBC % (auto) PT INR Anion Gap Estim Creat Clear Calc Estimated GFR Random Glucose Lactic Acid Lactic Acid F/U @ 2Hr 1.5 Lactic Acid F/U @ 4Hr Calcium Troponin I High Sens 27.4 B-Natriuretic Peptide Urine Color Yellow Urine Appearance Hazy Urine pH 5.5 Ur Specific [place] 1.010 Urine Protein 30 (1+) H Urine Glucose (UA) Negative Urine Ketones Negative Urine Blood Large (3+) H Urine Nitrite Negative Ur Leukocyte Esterase Trace H Urine RBC >20 H Urine WBC >50 H Ur Squamous Epith Cells 3-5 Urine Bacteria None Seen Hyaline Casts 0-2 Influenza Type A (PCR) Influenza Type B (PCR) RSV RNA Qual (PCR) SARS-CoV-2 RNA (RT-PCR) 02/15/23 02/15/23 02/16/23 20:43 23:19 02:01 MCV MCH MCHC RDW Plt Count MPV Absolute Nucleated RBC Nucleated RBC % (auto) PT INR Anion Gap Estim Creat Clear Calc Estimated GFR Random Glucose Lactic Acid 2.1 H* Lactic Acid F/U @ 2Hr 4.2 H* Lactic Acid F/U @ 4Hr 3.7 H* Calcium Troponin I High Sens B-Natriuretic Peptide Urine Color Urine Appearance Urine pH Ur Specific [place] Urine Protein Urine Glucose (UA) Urine Ketones Urine Blood Urine Nitrite Ur Leukocyte Esterase Urine RBC Urine WBC Ur Squamous Epith Cells Urine Bacteria Hyaline Casts Influenza Type A (PCR) Influenza Type B (PCR) RSV RNA Qual (PCR) SARS-CoV-2 RNA (RT-PCR) 02/16/23 02/16/23 02/16/23 05:33 05:33 05:33 MCV 91.7 MCH 29.4 MCHC 32.1 RDW 17.0 H Plt Count 116 L D MPV 10.0 Absolute Nucleated RBC 0.000 Nucleated RBC % (auto) 0.0 PT INR Anion Gap 10 L Estim Creat Clear Calc 124.6 Estimated GFR > 60 Random Glucose 108 Lactic Acid Lactic Acid F/U @ 2Hr Lactic Acid F/U @ 4Hr Calcium 7.5 L D Troponin I High Sens B-Natriuretic Peptide 155 H Urine Color Urine Appearance Urine pH Ur Specific [place] Urine Protein Urine Glucose (UA) Urine Ketones Urine Blood Urine Nitrite Ur Leukocyte Esterase Urine RBC Urine WBC Ur Squamous Epith Cells Urine Bacteria Hyaline Casts Influenza Type A (PCR) Influenza Type B (PCR) RSV RNA Qual (PCR) SARS-CoV-2 RNA (RT-PCR) Microbiology Microbiology Results: Microbiology 02/15/23 Unknown Urine Culture - Preliminary Urine clean catch - Urine mishra top Culture too young to evaluate. 02/15/23 12:46 Blood Culture - Preliminary Blood - Venous Prelim: GNR Gram Stain only Assessment and Plan (1) Atypical pneumonia: Status: Acute (2) Acute UTI: Status: Acute (3) Altered mental status: Status: Acute Plan Pt is a 67-year-old male with a PMH significant for?dementia, schizophrenia, COPD, AFib on Xarelto, HTN, HLD, dysphagia, and CVA who presents to the ED via EMS from [facility] with temperature of 102.9 degrees, increased lethargy, tachycardia, and altered mental status since yesterday. Pt will be admitted to the hospital for treatment and further evaluation of altered mental status in the setting of likely infection. Toxic encephalopathy 2/2 infection improving confused, slow to respond recurrent reorientation and treat underlying infection Sepsis 2/[address] of chest showing possible atypical pneumonia/bronchitis pending respiratory panel empirically cover with vanco and Zosyn Patient not currently on supplemental oxygen, not hypoxic Acute pyelonephritis CT with findings of possible infection nephritis, and bladder wall thickening possibly suggestive of cystitis Patient complaining of dysuria continue vanco and Zosyn Follow cultures Acute lactic acidosis resolved Elevated troponins Initial troponin 40.7, repeat 27.4 Likely type 2 demand ischemia Pt not complaining of chest pain/pressure EKG negative for ST elevations or depressions Elevated BNP BNP elevated to 224 CT of chest and CXR negative for vascular congestion or pleural effusions monitor fluid states HLD Continue statin BPH BP soft, hold finasteride and tamsulosin tonight Mood disorder Continue divalproex Full Code DVT Prophylaxis: On Xarelto Pt will require a hospitalization of overnight for treatment and further evaluation of altered mental status in the setting of likely infection. Time Spent With Patient Time: Total time managing care of this patient today ____ minutes. Quality Stroke Does the patient have a stroke diagnosis?: No VTE Prior VTE?: No VTE Risk Level:: Medical - moderate - high VTE Device Contraindication: Treatment Not Indicated VTE Drug Contraindication: N/A - Med Ordered
[2023-02-16] MEDS: Potassium Chloride Packet 20 MEQ PACKET 40 MEQ PO (13:53)
[2023-02-16 13:56] LABS: Adenovirus PCR Not Detected (Not Detect.); Bordetella parapertussis PCR Not Detected (Not Detect.); Bordetella pertussis PCR Not Detected (Not Detect.); Chlamydia pneumoniae PCR Not Detected (Not Detect.); Coronavirus 229E PCR Not Detected (Not Detect.); Coronavirus HKU1 PCR Not Detected (Not Detect.); Coronavirus NL63 PCR Not Detected (Not Detect.); Coronavirus OC43 PCR Not Detected (Not Detect.); Human metapneumovirus PCR Not Detected (Not Detect.); Influenza A PCR Not Detected (Not Detect.); Influenza B PCR Not Detected (Not Detect.); Mycoplasma pneumoniae PCR Not Detected (Not Detect.); Parainfluenza 1 PCR Not Detected (Not Detect.); Parainfluenza 2 PCR Not Detected (Not Detect.); Parainfluenza 3 PCR Not Detected (Not Detect.); Parainfluenza 4 PCR Not Detected (Not Detect.); RSV PCR Not Detected (Not Detect.); Rhino/Enterovirus PCR Not Detected (Not Detect.); SARS-CoV-2 PCR Not Detected (Not Detect.)
[2023-02-16] MEDS: 0.9 % Sodium Chloride Flush 3 ML SYRINGE IVFLUSH ×2 (15:35→20:05)
[2023-02-16 16:00] VITALS: BP 115/53; PULSE 84; RESP 17; TEMP 37.4; O2SAT 96
[2023-02-16] MEDS: Rivaroxaban 15 MG TABLET PO (17:38)
[2023-02-16 19:34] VITALS: BP 132/66; PULSE 76; RESP 17; TEMP 36.8; O2SAT 98
[2023-02-16] MEDS: Divalproex Sodium 250 MG TABLET.DR 750 MG PO (20:04)
[2023-02-16] MEDS: Tamsulosin HCL 0.4 MG CAPSULE PO (20:05)
[2023-02-16] MEDS: vancomycin HCL 1,250 MG in 0.9 % Sodium Chloride 250 ML 166.67 MG IV (20:05)
[2023-02-16] MEDS: Atorvastatin Calcium 10 MG TABLET PO (20:05)
[2023-02-17] MEDS: Piperacillin Sodium/Tazobactam 4.5 GM in 0.9 % Sodium Chloride 100 ML IV ×4 (01:23→18:27)
[2023-02-17 03:31] VITALS: BP 121/53; PULSE 84; RESP 18; TEMP 37.9; O2SAT 95
[2023-02-17] MEDS: Acetaminophen 325 MG TABLET 650 MG PO (04:07)
[2023-02-17 06:13] LABS: Vancomycin Random 9.2 mcg/mL (15-20)
[2023-02-17 06:25] VITALS: TEMP 37.1
[2023-02-17 06:35] LABS: Creatinine Clr Calc Pharmacy 138.4; Estimated Glomerular Filt Rate > 60
--- NOTE | 2023-02-17 06:49 | HE.PHANOTE ---
Vancomycin Dosing Patient level 9.2. Patient had one increase dose of 1250 mg q12h. Level expected to be subtherapeutic therefore will increase dose to vancomycin 1500 mg Q12H. Expected AUC is 462 with a trough of 14.4. Will get another level on 02/18 @ 0600. Pharmacy will continue to monitor renal function daily. Carito Sims, PanchitoD
[2023-02-17] MEDS: 0.9 % Sodium Chloride Flush 3 ML SYRINGE IVFLUSH ×3 (07:10→21:36)
[2023-02-17] MEDS: Multivitamin TABLET 1 TAB PO (07:25)
[2023-02-17] MEDS: Divalproex Sodium 500 MG TABLET.DR PO ×2 (07:25→21:36)
[2023-02-17] MEDS: vancomycin HCL 1,500 MG in 0.9 % Sodium Chloride 500 ML 333.33 MG IV ×2 (07:25→19:49)
[2023-02-17] MEDS: Finasteride 5 MG TABLET PO (07:25)
[2023-02-17 07:42] VITALS: BP 130/66; PULSE 69; RESP 18; TEMP 36.7; O2SAT 96
--- NOTE | 2023-02-17 11:43 | HO.PM.IMPN ---
Subjective Subjective Date of Service: 02/17/23 Interval History: Seen and evaluated no fever overnight more alert and interactive no reported overnight events Review of Systems Review of Systems: Yes all other systems are reviewed and are negative Physical Exam Vital Signs: Vital Signs: Last Vital Signs Temp 98.0 F 02/17/23 07:42 Pulse 69 02/17/23 07:42 Resp 18 02/17/23 07:42 BP 130/66 02/17/23 07:42 Pulse Ox 96 02/17/23 07:42 O2 Del Method Room Air 02/17/23 07:42 BMI result Body Mass Index 37.7 Const: Other: Constitutional : Awake, interactive, not in distress Neck : Normal inspection, Supple Cardiovascular : RRR, no JVP, no lower extremity edema Respiratory : good bilateral air entry, basal bilateral fine crackles, no wheezes or rhonchi Gastrointestinal: soft, lax, Normal bowel sounds, Non tender Skin : Warm, Dry Neurological : Alert & oriented to self, No focal deficit Objective Data Active Medications Acetaminophen (Acetaminophen 325 Mg Tablet) 650 mg PO Q6H PRN PRN Reason: Pain, Mild (Pain Scale 1-3) Last Admin: 02/17/23 04:07 Dose: 650 mg Documented By: DENA Atorvastatin Calcium (Atorvastatin Calcium 10 Mg Tablet) 10 mg PO BEDTIME [facility] Last Admin: 02/16/23 20:05 Dose: 10 mg Documented By: DENA Divalproex Sodium (Divalproex Sodium 500 Mg Tablet.) 500 mg PO BID [facility] Last Admin: 02/17/23 07:25 Dose: 500 mg Documented By: YONATAN Divalproex Sodium (Divalproex Sodium 250 Mg Tablet.) 750 mg PO BEDTIME [facility] Last Admin: 02/16/23 20:04 Dose: 750 mg Documented By: DENA Docusate Sodium (Docusate Sodium 100 Mg Capsule) 100 mg PO DAILY PRN PRN Reason: Constipation Finasteride (Finasteride 5 Mg Tablet) 5 mg PO DAILY [facility] Last Admin: 02/17/23 07:25 Dose: 5 mg Documented By: YONATAN Piperacillin Sod/Tazobactam (Sod 4.5 gm/ Sodium Chloride) 100 mls @ 200 mls/hr IV Q6H [facility] Last Infusion: 02/17/23 07:10 Dose: 0 mls/hr Documented By: YONATAN Vancomycin HCl 1,500 mg/ (Sodium Chloride) 500 mls @ 333.333 mls/hr IV Q12H [facility] Last Infusion: 02/17/23 11:15 Dose: 333.33 mls/hr Documented By: YONATAN Multivitamins/Vitamin C (Multivitamin Tablet) 1 tab PO DAILY [facility] Last Admin: 02/17/23 07:25 Dose: 1 tab Documented By: YONATAN Pharmacy Consult (Consult Rx Vancomycin Dosing) 1 each MISCELLANE DAILY PRN PRN Reason: Consult order Rivaroxaban (Rivaroxaban 15 Mg Tablet) 15 mg PO DAILY@1800 [facility] Last Admin: 02/16/23 17:38 Dose: 15 mg Documented By: YONATAN Sodium Chloride (0.9 % Sodium Chloride Flush 3 Ml Syringe) 3 ml IVFLUSH QSHIFT [facility] Last Admin: 02/17/23 07:10 Dose: 3 ml Documented By: YONATAN Tamsulosin HCl (Tamsulosin Hcl 0.4 Mg Capsule) 0.4 mg PO BEDTIME [facility] Last Admin: 02/16/23 20:05 Dose: 0.4 mg Documented By: LYSZ Labs 02/16/23 05:33 02/17/23 05:46 Labs: Laboratory Results - last 24 hr 02/15/23 02/17/23 02/17/23 18:14 05:46 05:46 Estim Creat Clear Calc 138.4 Estimated GFR > 60 Random Vancomycin 9.2 L Respiratory Panel [place]nel[place] See Note Adenovirus (Rapid PCR) Not Detected B.pert (TEM-PCR) Not Detected B.parapertussis DNA PCR Not Detected C. pneumoniae DNA (PCR) Not Detected Coronavirus OC43 (PCR) Not Detected Coronavirus HKU1 (PCR) Not Detected Coronavirus 229E (PCR) Not Detected Coronavirus NL63 (PCR) Not Detected Human Metapneumovir PCR Not Detected Influenza A (RT-PCR) Not Detected Influenza B (RT-PCR) Not Detected M. pneumoniae (PCR) Not Detected Parainfluenza 1 (PCR) Not Detected Parainfluenza 2 (PCR) Not Detected Parainfluenza 3 (PCR) Not Detected Parainfluenza 4 (PCR) Not Detected RSV (PCR) Not Detected Entero/Rhino (PCR) Not Detected SARS-CoV-2 RNA (RT-PCR) Not Detected Microbiology Microbiology Results: Microbiology 02/15/23 Unknown Urine Culture - Final Urine clean catch - Urine mishra top 02/15/23 12:46 Blood Culture - Preliminary Blood - Venous Gram negative ray 02/16/23 05:33 Blood Culture - Preliminary Blood - Venous No growth after 24 hours. 02/16/23 05:33 Blood Culture - Preliminary Blood - Venous No growth after 24 hours. 02/15/23 13:00 Blood Culture - Preliminary Blood - Venous No growth after 24 hours. Assessment and Plan (1) Atypical pneumonia: Status: Acute (2) Acute UTI: Status: Acute (3) Sepsis: Status: Acute Plan Pt is a 67-year-old male with a PMH significant for?dementia, schizophrenia, COPD, AFib on Xarelto, HTN, HLD, dysphagia, and CVA who presents to the ED via EMS from [facility] with temperature of 102.9 degrees, increased lethargy, tachycardia, and altered mental status since yesterday. Pt will be admitted to the hospital for treatment and further evaluation of altered mental status in the setting of likely infection. Toxic encephalopathy 2/2 infection improving confused, seems at basline given hx of dementia recurrent reorientation and treat underlying infection Sepsis 2/[address] of chest showing possible atypical pneumonia/bronchitis negative respiratory panel continue to cover with vanco and Zosyn pending final cultures, can deescalate by then Acute pyelonephritis/UTI CT with findings of possible infection nephritis, and bladder wall thickening possibly suggestive of cystitis Patient complaining of dysuria continue vanco and Zosyn negative urine cultures Acute lactic acidosis resolved Elevated troponins Initial troponin 40.7, repeat 27.4 Likely type 2 demand ischemia Pt not complaining of chest pain/pressure EKG negative for ST elevations or depressions Elevated BNP BNP elevated to 224 CT of chest and CXR negative for vascular congestion or pleural effusions monitor fluid states HLD Continue statin BPH BP soft, hold finasteride and tamsulosin tonight Mood disorder Continue divalproex Full Code DVT Prophylaxis: On Xarelto Pt will require a hospitalization of overnight for treatment and further evaluation of altered mental status in the setting of infection.pending final blood cultures Time Spent With Patient Time: Total time managing care of this patient today ____ minutes. Quality Stroke Does the patient have a stroke diagnosis?: No VTE Prior VTE?: No VTE Risk Level:: Medical - moderate - high VTE Device Contraindication: Treatment Not Indicated VTE Drug Contraindication: N/A - Med Ordered
[2023-02-17 15:21] VITALS: BP 108/70; PULSE 76; RESP 99; TEMP 36.8; O2SAT 99
[2023-02-17] MEDS: Rivaroxaban 15 MG TABLET PO (17:18)
[2023-02-17 19:32] VITALS: BP 128/68; PULSE 80; RESP 20; TEMP 36.9; O2SAT 98
[2023-02-17] MEDS: Divalproex Sodium 250 MG TABLET.DR 750 MG PO (21:36)
[2023-02-17] MEDS: Atorvastatin Calcium 10 MG TABLET PO (21:36)
[2023-02-17] MEDS: Tamsulosin HCL 0.4 MG CAPSULE PO (21:36)
[2023-02-18] MEDS: Piperacillin Sodium/Tazobactam 4.5 GM in 0.9 % Sodium Chloride 100 ML IV ×2 (00:51→06:26)
[2023-02-18 03:32] VITALS: BP 119/60; PULSE 63; RESP 18; TEMP 36.4; O2SAT 94
[2023-02-18 06:14] LABS: Hematocrit 31.4 % (42.0-52.0); Hemoglobin 10.1 g/dl (14.0-18.0); Mean Corpuscular HGB Conc 32.2 g/dl (31.0-36.0); Mean Corpuscular Hemoglobin 29.6 pg (27.0-33.0); Mean Corpuscular Volume 92.1 fL (80.0-98.0); Mean Platelet Volume 10.2 fL (9.4-12.4); Platelet Count 107 X10*3/uL (160-400); Red Blood Count 3.41 X10*6/uL (4.60-5.80); Red Cell Distribution Width 16.5 % (11.0-16.0)
[2023-02-18 06:33] LABS: Vancomycin Random 12.1 mcg/mL (15-20)
[2023-02-18 07:03] LABS: Anion Gap 11 (12-20); Blood Urea Nitrogen 12 mg/dL (9-16); Carbon Dioxide 26 mmol/L (22-29); Chloride 108 mmol/L (96-108); Creatinine Clr Calc Pharmacy 140.4; Estimated Glomerular Filt Rate > 60; Glucose Random 116 mg/dL (60-115); Potassium 2.9 mmol/L (3.3-5.1); Sodium 142 mmol/L (135-145)
[2023-02-18 07:13] VITALS: BP 120/56; PULSE 65; RESP 18; TEMP 36.2; O2SAT 95
--- NOTE | 2023-02-18 07:15 | HE.PHANOTE ---
Vancomycin Dosing Addendum Patients level came back at 12.1 this morning. Continue dose of 1500 mg Q12H. Next level to be drawn 02/19 @0600. No major change in renal function from yesterday to today. Predicted AUC 428 mg/L/hr
[2023-02-18] MEDS: 0.9 % Sodium Chloride Flush 3 ML SYRINGE IVFLUSH ×3 (08:08→20:19)
[2023-02-18] MEDS: Potassium Chloride ER 20 MEQ TAB.ER.PRT 40 MEQ PO (08:08)
[2023-02-18] MEDS: Multivitamin TABLET 1 TAB PO (08:08)
[2023-02-18] MEDS: Divalproex Sodium 500 MG TABLET.DR PO ×2 (08:08→20:18)
[2023-02-18] MEDS: Finasteride 5 MG TABLET PO (08:09)
[2023-02-18] MEDS: vancomycin HCL 1,500 MG in 0.9 % Sodium Chloride 500 ML 333.33 MG IV (08:09)
--- NOTE | 2023-02-18 11:12 | P.PNIM_ITS ---
Subjective Subjective Date of Service: 02/18/23 Interval History: no complaints Physical Exam Vital Signs: Vital Signs: Last Vital Signs Temp 97.1 F 02/18/23 07:13 Pulse 65 02/18/23 07:13 Resp 18 02/18/23 07:13 BP 120/56 L 02/18/23 07:13 Pulse Ox 95 02/18/23 07:13 O2 Del Method Room Air 02/18/23 07:13 BMI result Body Mass Index 37.7 Const: Other: Constitutional : Awake, interactive, not in distress Neck : Normal inspection, Supple Cardiovascular : RRR, no JVP, no lower extremity edema Respiratory : good bilateral air entry, basal bilateral fine crackles, no wheezes or rhonchi Gastrointestinal: soft, lax, Normal bowel sounds, Non tender Skin : Warm, Dry Neurological : Alert & oriented to self, No focal deficit Objective Data Active Medications Acetaminophen (Acetaminophen 325 Mg Tablet) 650 mg PO Q6H PRN PRN Reason: Pain, Mild (Pain Scale 1-3) Last Admin: 02/17/23 04:07 Dose: 650 mg Documented By: DENA Atorvastatin Calcium (Atorvastatin Calcium 10 Mg Tablet) 10 mg PO BEDTIME [facility] Last Admin: 02/17/23 21:36 Dose: 10 mg Documented By: BRADLEY Divalproex Sodium (Divalproex Sodium 500 Mg Tablet.) 500 mg PO BID [facility] Last Admin: 02/18/23 08:08 Dose: 500 mg Documented By: YONATAN Divalproex Sodium (Divalproex Sodium 250 Mg Tablet.) 750 mg PO BEDTIME [facility] Last Admin: 02/17/23 21:36 Dose: 750 mg Documented By: BRADLEY Docusate Sodium (Docusate Sodium 100 Mg Capsule) 100 mg PO DAILY PRN PRN Reason: Constipation Finasteride (Finasteride 5 Mg Tablet) 5 mg PO DAILY [facility] Last Admin: 02/18/23 08:09 Dose: 5 mg Documented By: YONATAN Piperacillin Sod/Tazobactam (Sod 4.5 gm/ Sodium Chloride) 100 mls @ 200 mls/hr IV Q6H [facility] Last Infusion: 02/18/23 06:58 Dose: 0 mls/hr Documented By: BRADLEY Vancomycin HCl 1,500 mg/ (Sodium Chloride) 500 mls @ 333.333 mls/hr IV Q12H [facility] Last Infusion: 02/18/23 10:30 Dose: 0 mls/hr Documented By: YONATAN Multivitamins/Vitamin C (Multivitamin Tablet) 1 tab PO DAILY [facility] Last Admin: 02/18/23 08:08 Dose: 1 tab Documented By: YONATAN Pharmacy Consult (Consult Rx Vancomycin Dosing) 1 each MISCELLANE DAILY PRN PRN Reason: Consult order Rivaroxaban (Rivaroxaban 15 Mg Tablet) 15 mg PO DAILY@1800 [facility] Last Admin: 02/17/23 17:18 Dose: 15 mg Documented By: YONATAN Sodium Chloride (0.9 % Sodium Chloride Flush 3 Ml Syringe) 3 ml IVFLUSH QSHIFT [facility] Last Admin: 02/18/23 08:08 Dose: 3 ml Documented By: YONATAN Tamsulosin HCl (Tamsulosin Hcl 0.4 Mg Capsule) 0.4 mg PO BEDTIME [facility] Last Admin: 02/17/23 21:36 Dose: 0.4 mg Documented By: BRADLEY Labs 02/18/23 05:50 02/18/23 05:50 Labs: Laboratory Results - last 24 hr 02/18/23 02/18/23 02/18/23 05:50 05:50 05:50 MCV 92.1 MCH 29.6 MCHC 32.2 RDW 16.5 H Plt Count 107 L MPV 10.2 Absolute Nucleated RBC 0.000 Nucleated RBC % (auto) 0.0 Anion Gap Estim Creat Clear Calc Cancelled Estimated GFR Cancelled Random Glucose Calcium Random Vancomycin 12.1 L 02/18/23 05:50 MCV MCH MCHC RDW Plt Count MPV Absolute Nucleated RBC Nucleated RBC % (auto) Anion Gap 11 L Estim Creat Clear Calc 140.4 Estimated GFR > 60 Random Glucose 116 H Calcium 8.0 L D Random Vancomycin Microbiology Microbiology Results: Microbiology 02/15/23 12:46 Blood Culture - Final Blood - Venous Proteus mirabilis 02/16/23 05:33 Blood Culture - Preliminary Blood - Venous No growth after 48 hours. 02/16/23 05:33 Blood Culture - Preliminary Blood - Venous No growth after 48 hours. 02/15/23 13:00 Blood Culture - Preliminary Blood - Venous No growth after 48 hours. 02/15/23 Unknown Urine Culture - Final Urine clean catch - Urine mishra top Assessment and Plan (1) Atypical pneumonia: Status: Acute (2) Acute UTI: Status: Acute (3) Sepsis: Status: Acute Plan 67-year-old male with a PMH significant for?dementia, schizophrenia, COPD, AFib on Xarelto, HTN, HLD, dysphagia, and CVA who presented to the ED via EMS from [facility] with temperature of 102.9 degrees, increased lethargy, tachycardia, and altered mental status severe sepsis, acute metabolic encephalopathy due to pneumonia resolved cultures negative, deescalate abx to rocephin paroxysmal afib xarelto COPD not in acute exacerbation history of cva xarelto, statin hypokalemia replace and monitor HLD statin BPH finasteride and tamsulosin Mood disorder Continue divalproex Full Code DVT Prophylaxis: On Xarelto reason for continued hospitalization: hypokalemia - requiring close monitoring of supplementation Time Spent With Patient Time: Total time managing care of this patient today ____ minutes. Quality Stroke Does the patient have a stroke diagnosis?: No VTE Prior VTE?: No VTE Risk Level:: Medical - moderate - high VTE Device Contraindication: Treatment Not Indicated VTE Drug Contraindication: N/A - Med Ordered
[2023-02-18] MEDS: cefTRIAXone sodium 1 GM in 0.9 % Sodium Chloride 50 ML IV (12:07)
--- NOTE | 2023-02-18 15:40 | MHC.CM.PN ---
A clinical update has been sent to [facility]. Per MD rounds, DC is anticipated tomorrow. DP return to [facility] via BLS.
[2023-02-18 16:00] VITALS: BP 130/72; PULSE 68; RESP 16; TEMP 36.4; O2SAT 97
[2023-02-18] MEDS: Rivaroxaban 15 MG TABLET PO (18:18)
[2023-02-18 20:00] VITALS: BP 131/73; PULSE 64; RESP 14; TEMP 36.1; O2SAT 97
[2023-02-18] MEDS: Divalproex Sodium 250 MG TABLET.DR 750 MG PO (20:18)
[2023-02-18] MEDS: Tamsulosin HCL 0.4 MG CAPSULE PO (20:18)
[2023-02-18] MEDS: Atorvastatin Calcium 10 MG TABLET PO (20:18)
[2023-02-19 03:53] VITALS: BP 132/61; PULSE 70; RESP 19; TEMP 36.8; O2SAT 97
[2023-02-19 06:40] LABS: Mean Corpuscular HGB Conc 33.3 g/dl (31.0-36.0); Mean Corpuscular Hemoglobin 29.6 pg (27.0-33.0); Mean Corpuscular Volume 88.8 fL (80.0-98.0); PLT CLUMP 1; Red Blood Count 3.38 X10*6/uL (4.60-5.80); Red Cell Distribution Width 16.4 % (11.0-16.0); White Blood Count 6.8 X10*3/uL (4.8-10.8)
[2023-02-19 07:03] LABS: Platelet Count 107 X10*3/uL (160-400)
[2023-02-19 07:28] VITALS: BP 145/85; PULSE 74; RESP 20; TEMP 37; O2SAT 97
[2023-02-19] MEDS: 0.9 % Sodium Chloride Flush 3 ML SYRINGE IVFLUSH (07:38)
[2023-02-19] MEDS: Multivitamin TABLET 1 TAB PO (07:38)
[2023-02-19] MEDS: Finasteride 5 MG TABLET PO (07:38)
[2023-02-19] MEDS: Divalproex Sodium 500 MG TABLET.DR PO (07:39)
[2023-02-19 10:57] LABS: Anion Gap 15 (12-20); Blood Urea Nitrogen 9 mg/dL (9-16); Calcium 7.9 mg/dL (8.4-10.2); Carbon Dioxide 24 mmol/L (22-29); Chloride 106 mmol/L (96-108); Creatinine Clr Calc Pharmacy 158.2; Estimated Glomerular Filt Rate > 60; Glucose Fasting 99 mg/dL (60-99); Magnesium 1.6 mg/dL (1.6-2.6); Potassium 3.2 mmol/L (3.3-5.1); Sodium 142 mmol/L (135-145)
--- NOTE | 2023-02-19 11:03 | P.DS_ITS ---
DS: Providers Provider Date of Service: 02/19/23 Date of admission: 02/15/23 18:55 Primary care physician: MARINA DHALIWAL DS: Diagnosis Discharge Diagnosis (1) Atypical pneumonia: Status: Acute (2) Acute UTI: Status: Acute (3) Sepsis: Status: Acute DS: Summary Hospital Course Hospital Course: from initial hpi: Chief Complaint: Lethargy, AMS Pt is a 67-year-old male with a PMH significant for?dementia, schizophrenia, COPD, AFib on Xarelto, HTN, HLD, dysphagia, and CVA who presents to the ED via EMS from [facility] with temperature of 102.9 degrees, increased lethargy, tachycardia, and altered mental status since yesterday. Pt is currently confused, unaware of his situation, somnolent, and slow to respond to inquiries; HPI obtained from chart review and staff at [facility].? At baseline patient is apparently quite verbal and capable of making his demands known.? Is able to ambulate short distances with 1 assist and capable of feeding himself. Pt is unaware of why he is in the hospital. Complains only of dysuria. Denies chest pain/pressure, difficulty breathing. No cough. In the ED patient was febrile at 102.5, tachycardic up to 112, and hypotensive at 94/55. Labs were significant for leukocytosis of 22.1, lactic acid of 2.9 with repeat normalized to 1.5, initial troponin elevated 40.7 with repeat down trending to 27.4, elevated BNP of 224.? UA positive for 3+ blood, trace leukocyte esterase, greater than 20 RBC, greater than 50 WBC, with no bacteria seen. CXR showed mild interstitial and peribronchial cuffing that migh be small airway disease, and blunting of the left costophrenic angle possibly an underlying sub pulmonic pleural effusion, but no dense focal consolidations, CT?of head showed no intracranial mass, hemorrhage, or other acute intracranial pathology.? CT of chest showing possible diffuse viral or atypical pneumonia/bronchitis.? Other findings included borderline aneurysm of the ascending aorta, severe coronary artery calcifications, coli lithiasis, diffuse pancreatic parenchymal atrophy and fatty infiltration, and osteopenia suspicious for anxiolysis and spondylolysis.? CT of abdomen and pelvis found possible infection nephritis, circumferential wall thickening and thickened trabeculation the urinary bladder that is nonspecific but commonly associated with chronic outflow obstruction or cystitis, diverticulosis without diverticulitis, cholelithiasis, and splenomegaly. EKG demonstrated sinus rhythm with no evidence of ST elevations or depressions. Pt was treated with Tylenol, cefepime, and IV fluid. Pt will be admitted to the hospital for treatment and further evaluation of altered mental status in the setting of likely infection. hospital course: patient was admitted for severe sepsis and acute metabolic encephalopathy due to pneumonia and urinary tract infection. urine culture grew Proteus mirabilis, blood cultures were negative, received broad-spectrum IV antibiotics with vancomycin Zosyn later deescalated to ceftriaxone and completed treatment. Patient is now back to baseline. For paroxysmal atrial fibrillation was continue on Xarelto. For COPD there was no acute exacerbation. For history of CVA patient continued on Xarelto and statin. For hypokalemia this was replaced. For hyyperlipidemia he was continued on statin. For BPH who was continued on finasteride and tamsulosin. for mood disorder was continued on Depakote. Patient's back to baseline will be discharged to [facility]. Time Spent with Patient Time attestation: Total time managing care of this patient today ____ minutes. Discharge coordination time: Greater than 30 minutes Quality: Safe Use of Opioids Does Pt have an Active Cancer Diagnosis on the Problem List?: No Quality: Stroke Does the patient have a stroke diagnosis?: No Physical Exam Vital Signs: Vital Signs: Last Vital Signs Temp 98.6 F 02/19/23 07:28 Pulse 74 02/19/23 07:28 Resp 20 02/19/23 07:28 BP 145/85 H 02/19/23 07:28 Pulse Ox 97 02/19/23 07:28 O2 Del Method Room Air 02/19/23 07:28 BMI result Body Mass Index 37.7 Const: Other: Constitutional : Awake, interactive, not in distress Neck : Normal inspection, Supple Cardiovascular : RRR, no JVP, no lower extremity edema Respiratory : good bilateral air entry, basal bilateral fine crackles, no wheezes or rhonchi Gastrointestinal: soft, lax, Normal bowel sounds, Non tender Skin : Warm, Dry Neurological : Alert & oriented to self, No focal deficit DS: Data Data Completed and Pending Labs on day of discharge: Laboratory Results - last 24 hr 02/19/23 02/19/23 06:24 06:24 WBC 6.8 RBC 3.38 L Hgb 10.0 L Hct 30.0 L MCV 88.8 MCH 29.6 MCHC 33.3 RDW 16.4 H Plt Count 107 L MPV Not Reportable Absolute Nucleated RBC 0.000 Nucleated RBC % (auto) 0.0 Sodium 142 Potassium 3.2 L Chloride 106 Carbon Dioxide 24 Anion Gap 15 BUN 9 Creatinine 0.63 Estim Creat Clear Calc 158.2 Estimated GFR > 60 Fasting Glucose 99 Calcium 7.9 L Magnesium 1.6 Preliminary micro results at discharge 02/16/23 05:33 Blood Culture - Preliminary Blood - Venous No growth after 48 hours. 02/16/23 05:33 Blood Culture - Preliminary Blood - Venous No growth after 48 hours. 02/15/23 13:00 Blood Culture - Preliminary Blood - Venous No growth after 48 hours. Discharge Plan Discharge Anticipated Discharge Date/Time: 02/19/23 11:01 Patient Disposition: er SNF Discharge Diagnosis: uti Referrals: MARINA DHALIWAL [Primary Care Provider] - 1 Week Discharge Medications: Continued multivitamin Tablet 1 tab PO DAILY divalproex 250 mg Tablet,Delayed Release (Dr/Ec) 500 mg PO BID divalproex 250 mg Tablet,Delayed Release (Dr/Ec) 750 mg PO BEDTIME atorvastatin 10 mg Tablet 10 mg PO BEDTIME oxazepam 15 mg Capsule 15 mg PO BEDTIME tamsulosin 0.4 mg Capsule 0.4 mg PO BEDTIME finasteride 5 mg Tablet 5 mg PO DAILY Xarelto 15 mg Tablet 15 mg PO DAILY@1800 Rx Instructions: must administer with evening meal Discharge Orders: Discharge Order (Routine); Ordered 02/19/23 Ordered By: Jeb Wharton Diet: Advance to usual diet Activity on Discharge: As tolerated Stand Alone Forms: Patient Portal Discharge page Care Plan Goals: recovery Health Concerns: uti, pna Plan of Treatment: completed treatment Assessment: see above
[2023-02-19] MEDS: Potassium Chloride ER 20 MEQ TAB.ER.PRT 40 MEQ PO (11:33)
[2023-02-19] MEDS: cefTRIAXone sodium 1 GM in 0.9 % Sodium Chloride 50 ML IV (11:35)
[2023-02-19 12:47] LABS: COVID-19 Test Negative (Negative); IDNOW Serial# 9DB6401D
--- NOTE | 2023-02-19 13:32 | MHC.CM.PN ---
IMM 02/19/23 Patient is discharged today. He will return to [facility] via BLS @ 3pm today. All discharge info has been sent to the facility, including negative covid test result. The pts Guardian, Dain Martinez 3rd has been notified of the discharge, and agrees with the discharge.
== END 2023-02-19 15:42 | disposition skilled nursing facility (03) | DRG 871 ==
LOC: HO.ED 16:23 → HO.EDOVER 19:18 → HO.S3 19:45
PROVIDERS: Internal Medicine; Physician Assistant; Student in an Organized Health Care Education/Training Program; Admitting Provider Student in an Organized Health Care Education/Training Program; Emergency Provider Emergency Medicine; PCP Emergency Medicine; Visit Provider Internal Medicine
DX: A41.9 Sepsis, unspecified organism (principal); G92.8 Other toxic encephalopathy; J18.9 Pneumonia, unspecified organism; J44.0 Chronic obstructive pulmonary disease with (acute) lower respiratory infection; E87.21 Acute metabolic acidosis; N10 Acute pyelonephritis; I24.8 Other forms of acute ischemic heart disease; R65.20 Severe sepsis without septic shock; N40.0 Benign prostatic hyperplasia without lower urinary tract symptoms; I48.0 Paroxysmal atrial fibrillation; E78.5 Hyperlipidemia, unspecified; E87.6 Hypokalemia; F03.90 Unspecified dementia, unspecified severity, without behavioral disturbance, psychotic disturbance, mood disturbance, and anxiety; F20.9 Schizophrenia, unspecified; Z20.822 Contact with and (suspected) exposure to COVID-19; Z86.73 Personal history of transient ischemic attack (TIA), and cerebral infarction without residual deficits; Z79.01 Long term (current) use of anticoagulants; Z79.899 Other long term (current) drug therapy
CPT/HCPCS: 0241U; 36415; 70450; 71045; 71250; 74177; 80048; 80076; 80202; 81001; 82565; 82947; 83605; 83690; 83735; 83880; 84484; 85007; 85025; 85027; 85610; 87040; 87077; 87086; 87186; 87205; 87633; 87635; 93005; 99285; J0692; J0696; J2543; J3370; J3371; Q9967

== ENCOUNTER 2023-06-21 16:25 | Emergency (ER) | payer MEDICARE, MEDICAID, SELFPAY ==
--- NOTE | ~2023-06-21 | CT_ITS ---
EXAMINATION: CT HEAD WITHOUT CONTRAST CLINICAL INFORMATION: Unspecified neurological changes. COMPARISON: CT head 02/15/2023. TECHNIQUE: Contiguous axial imaging was performed from the skull base to vertex without intravenous administration of contrast. This CT examination was performed using dose optimization techniques as appropriate, variously including the following: *Automated exposure control *Adjustment of mA and/or kV according to patient size (this includes techniques or standardized protocols for targeted exams where dose is matched to indication/reason for exam; i.e. extremities or head) *Use of iterative reconstruction technique DLP: 690 mGy-cm FINDINGS: There is no evidence of acute intracranial hemorrhage or edematous territorial infarction. A few foci of hypoattenuation in the periventricular and deep white matter are consistent with mild microangiopathy. Portillo-white matter differentiation is preserved. Proportional prominence of the ventricles and sulcal spaces. No evidence for obstructive hydrocephalus. No abnormal mass effect or midline shift. No extra-axial fluid collections. No acute soft tissue or osseous abnormalities. The mastoid air cells and paranasal sinuses are clear. CT/CT head/brain wo IV con IMPRESSION: No evidence of acute intracranial hemorrhage or edematous territorial infarction.
--- NOTE | 2023-06-21 16:27 | ED.GENADULT ---
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 Patient states that his eyes have been itching and irritated for 2 days. Patient states that he normally cannot see correctly out of the left eye anyway. Patient denies any dizziness, lightheadedness, abdominal pain, nausea, vomiting, fever, chills, chest pain, difficulty breathing, shortness of breath, back pain, night sweats, pain with urination, increased urinary frequency, increased urinary urgency, blood in his urine or stool, syncope or a near syncopal episode, recent trauma or falls, bowel incontinence, bladder incontinence, bowel retention, bladder retention, or any other complaints at this time. Onset (ago): day(s) Location: eyes, left and right Severity: mild Severity scale (1-10): 3 Relieving factors: none Exacerbating factors: none Associated symptoms: denies other symptoms Treatments prior to arrival: none Related Data Home Medications Medication Instructions Recorded Confirmed atorvastatin 10 mg tablet 10 mg PO BEDTIME 02/15/23 02/15/23 divalproex 250 mg tablet,delayed 500 mg PO BID 02/15/23 02/15/23 release divalproex 250 mg tablet,delayed 750 mg PO BEDTIME 02/15/23 02/15/23 release finasteride 5 mg tablet 5 mg PO DAILY 02/15/23 02/15/23 multivitamin 1 tab PO DAILY 02/15/23 02/15/23 oxazepam 15 mg capsule 15 mg PO BEDTIME 02/15/23 02/15/23 rivaroxaban 15 mg tablet (Xarelto) 15 mg PO DAILY@1800 02/15/23 02/15/23 tamsulosin 0.4 mg capsule 0.4 mg PO BEDTIME 02/15/23 02/15/23 Previous Rx's Medication Instructions Recorded clindamycin HCl 300 mg capsule 300 mg PO TID 7 days #21 caps 06/21/23 erythromycin 5 mg/gram (0.5 %) eye 0.5 inch ophthalmic (eye) Q4H #3.5 06/21/23 ointment grams Allergies Allergy/AdvReac Type Severity Reaction Status Date / Time No Known Allergies Allergy Verified 02/15/23 12:30 Review of Systems Constitutional: Constitutional: Reports no additional constitutional complaints, Denies chills, Denies fever(s) and Denies night sweats Eyes: Eyes: Reports no additional eye complaints, Denies blurry vision, Denies change in vision, Denies diplopia, Denies eye discharge, Reports irritation, Reports itchy eyes, Reports loss of vision (left eye cannot see at baseline) and Denies eye pain ENT: Denies dizziness Cardiovascular: Cardiovascular: Reports no additional cardiovascular complaints, Denies chest pain, Denies lightheadedness, Denies Loss of Consciousness and Denies dyspnea Respiratory: Respiratory: Reports no additional respiratory complaints and Denies dyspnea Gastrointestinal: Gastrointestinal: Reports no additional gastrointestinal complaints, Denies abdominal pain, Denies melena, Denies hematochezia, Denies change in bowel habits and Denies change in stool character Genitourinary: Genitourinary: Reports no additional male genitourinary complaints, Denies hematuria, Denies oliguria, Denies difficulty urinating, Denies dysuria, Denies urinary frequency, Denies urinary hesitancy, Denies urinary incontinence and Denies urinary urgency Musculoskeletal: Musculoskeletal: Reports no additional musculoskeletal complaints, Denies numbness and Denies tingling Neurologic: Denies dizziness, Reports loss of vision (left eye cannot see at baseline), Denies numbness and Denies tingling Psychiatric: Psychiatric: Reports no additional psychiatric complaints Endocrine: Endocrine: Reports no additional endocrine complaints Hematologic/Lymphatic: Hematologic/Lymphatic: Reports no additional hematologic/lymphatic complaints Allergic/Immunologic: Allergic/Immunologic: Reports no additional allergic/immunologic complaints and Reports itchy eyes PMFSH Past Medical History Attestation statement: The following information was validated with the patient. Source: old records reviewed, obtained from family (contacted by phone) and nursing notes reviewed Medical History (Updated 06/21/23 @ 21:43 by GLENROY Abreu) Acute UTI Altered mental status Atypical pneumonia Sepsis Social History Social History Household Members: None Housing: Shelter Do you presently have visiting nurse or other home services: No Unable to assess alcohol history related to: Unknown Patient Tobacco Use Status: Tobacco use Unknown Advance Directives: No Advance Directives Information Provided: No service: No Current occupational status: disabled Physical Exam ED Vital Signs: Vital Signs - 24 hr 06/21/23 16:39 Temperature 97.7 F Pulse Rate 65 Respiratory Rate 18 Blood Pressure 103/43 L Pulse Oximetry 99 Oxygen Delivery Method Room Air BMI result Body Mass Index 46.8 Const General: cooperative, no acute distress, alert and awake Nutritional Appearance: well nourished Orientation/consciousness: patient oriented x3 Limitations: no limitations HENMT Head: Yes normal to inspection and Yes atraumatic Ears: hearing grossly normal bilaterally and external ears normal General nose exam: Normal external nose present, no nasal discharge noted and no epistaxis Face and sinus: Yes normal facial exam, No abrasion and No laceration Mouth: Normal oral and palatal mucosa present, no drooling and no muffled voice Eyes Other: upper and lower eye lid erythema and swelling to both eyes, both eyes irritated with clear discharge, patient's left pupil misshapen and does not react with evidence of catatract. EOM: EOMs intact bilaterally Neck Neck: Yes normal visual inspection, Yes full ROM and Yes no lymphadenopathy Chest Chest palpation & inspection: normal inspection of the chest Resp Effort & Inspection: normal respiratory effort and able to speak in complete sentences GI Inspection: Yes normal to inspection Neuro General: patient oriented x3 and moves all extremities Cognition (Neuro): normal cognition Motor exam (neuro): 5/5 motor strength present throughout Sensory Exam: Normal double simultaneous stimulation for sensation Coordination: [id number] test normal Extrem General: Yes normal to inspection, Yes full ROM and Yes capillary refill normal Psych Appearance: grossly normal Mental Status: mental status grossly normal Affect: normal affect Attitude: cooperative Thought process: Normal thought process present Thought content: Normal thought content present Insight: Good insight present (Psych) Medical Decision Making Medical Decision Making MDM Narrative: Patient is a 67 year old assigned male at with a 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 Patient's physical exam was as noted in the physical exam portion of this note. Patient's left eye had a pressure of 13, patient's right eye had a pressure of 17. Patient's blood work was unremarkable. Patient's head CT showed no acute process. I consulted with the attending physician, Dr. Santiago. He examined the patient, spoke with the family, and performed a bed side ultrasound on the patient's left eye. He determined the pupil being misshapen on the left was a chronic issue and recommended treating the patient for conjunctivitis and preseptal cellulitis. I explained my physical exam findings as well as all test results to the patient. I answered all questions asked by the patient. I stressed the importance of the patient taking his medication as prescribed. I stressed the importance of the patient following up with his primary care provider and an artificial plastic eye maker. I stressed the importance of the patient returning to the emergency department immediately if his symptoms were to worsen or if he were to develop any dizziness, shortness of breath, difficulty breathing, chest pain, blurry vision, loss of vision, nausea, vomiting, abdominal pain, fever, chills, back pain, or any other complaints. Patient verbalized agreement and understanding with this treatment plan and discharge. Differential Diagnosis Differential Diagnoses: The differential diagnosis associated with the presentation includes CVA Cataract Conjunctivitis Preseptal cellulitis Admission/Observation Consideration of admission/observation: Escalation of care including admission/observation considered Patient would have been admitted to the hospital had his work up had any findings where hospital admission was appropriate and his clinical presentation warranted hospital admission. Lab Data MDM Lab Attestation statement: I reviewed the patient's lab results. My interpretation of these studies and their corresponding values is that they are grossly normal. 06/21/23 16:55 06/21/23 16:55 Labs: Lab Results 06/21/23 06/21/23 06/21/23 Range/Units 16:55 16:55 16:55 WBC 10.6 (4.8-10.8) X10*3/uL RBC 4.09 L D (4.60-5.80) X10*6/uL Hgb 11.9 L (14.0-18.0) g/dl Hct 37.8 L D (42.0-52.0) % MCV 92.4 (80.0-98.0) fL MCH 29.1 (27.0-33.0) pg MCHC 31.5 (31.0-36.0) g/dl RDW 15.5 (11.0-16.0) % Plt Count 221 D (160-400) X10*3/uL MPV 9.3 L (9.4-12.4) fL Immature Gran % (Auto) 0.6 H (0.0-0.4) % Neut % (Auto) 40.9 L (45-73) % Lymph % (Auto) 44.9 H (20-40) % [place] % (Auto) 11.9 H (2-11) % Eos % (Auto) 1.2 (0-4) % Baso % (Auto) 0.5 (0-2) % Lymph # (Auto) 4.8 (1.2-4.9) X10*3/uL [place] # (Auto) 1.3 H (0.1-1.2) X10*3/uL Eos # (Auto) 0.1 (0.0-0.4) X10*3/uL Baso # (Auto) 0.1 (0.0-0.2) X10*3/uL Abs Immat Gran (auto) 0.06 H (0.00-0.03) X10*3/uL Absolute Neuts (auto) 4.3 (2.0-8.3) x10*3/uL Absolute Nucleated RBC 0.000 (0.0-0.012) X10*3/uL Nucleated RBC % (auto) 0.0 (0.0-0.2) /100WBC ESR 22 H (0-15) MM/HR PT (11.1-13.3) SEC INR (0.9-1.1) APTT (26.0-36.4) SEC Sodium 141 (135-145) mmol/L Potassium 4.5 D (3.3-5.1) mmol/L Chloride 106 (96-108) mmol/L Carbon Dioxide 29 (22-29) mmol/L Anion Gap 11 L (12-20) BUN 19 H (9-16) mg/dL Creatinine 0.83 (0.5-1.4) mg/dL Estim Creat Clear Calc 112.4 Estimated GFR > 60 Random Glucose 86 (60-115) mg/dL Lactic Acid (0.5-2.0) mmol/L Calcium 9.0 D (8.4-10.2) mg/dL Total Bilirubin 0.3 (0.0-1.0) mg/dL AST 15 (5-37) U/L ALT 10 (0-40) U/L Alkaline Phosphatase 52 (39-117) U/L C-Reactive Protein 0.48 (< or = 0.50) mg/dL Total Protein 7.1 (6.5-8.0) g/dL Albumin 3.4 L (3.5-5.0) g/dL 06/21/23 06/21/23 Range/Units 16:55 17:14 WBC (4.8-10.8) X10*3/uL RBC (4.60-5.80) X10*6/uL Hgb (14.0-18.0) g/dl Hct (42.0-52.0) % MCV (80.0-98.0) fL MCH (27.0-33.0) pg MCHC (31.0-36.0) g/dl RDW (11.0-16.0) % Plt Count (160-400) X10*3/uL MPV (9.4-12.4) fL Immature Gran % (Auto) (0.0-0.4) % Neut % (Auto) (45-73) % Lymph % (Auto) (20-40) % [place] % (Auto) (2-11) % Eos % (Auto) (0-4) % Baso % (Auto) (0-2) % Lymph # (Auto) (1.2-4.9) X10*3/uL [place] # (Auto) (0.1-1.2) X10*3/uL Eos # (Auto) (0.0-0.4) X10*3/uL Baso # (Auto) (0.0-0.2) X10*3/uL Abs Immat Gran (auto) (0.00-0.03) X10*3/uL Absolute Neuts (auto) (2.0-8.3) x10*3/uL Absolute Nucleated RBC (0.0-0.012) X10*3/uL Nucleated RBC % (auto) (0.0-0.2) /100WBC ESR (0-15) MM/HR PT 11.5 (11.1-13.3) SEC INR 0.9 (0.9-1.1) APTT 30.0 (26.0-36.4) SEC Sodium (135-145) mmol/L Potassium (3.3-5.1) mmol/L Chloride (96-108) mmol/L Carbon Dioxide (22-29) mmol/L Anion Gap (12-20) BUN (9-16) mg/dL Creatinine (0.5-1.4) mg/dL Estim Creat Clear Calc Estimated GFR Random Glucose (60-115) mg/dL Lactic Acid 2.0 (0.5-2.0) mmol/L Calcium (8.4-10.2) mg/dL Total Bilirubin (0.0-1.0) mg/dL AST (5-37) U/L ALT (0-40) U/L Alkaline Phosphatase (39-117) U/L C-Reactive Protein (< or = 0.50) mg/dL Total Protein (6.5-8.0) g/dL Albumin (3.5-5.0) g/dL Independent Interpretation I performed an independent interpretation of an: CT Scan Interpretation: My interpretation is in agreement with the radiologist's impression of this imaging study. EXAMINATION: CT HEAD WITHOUT CONTRAST CLINICAL INFORMATION: Unspecified neurological changes.? COMPARISON: CT head 02/15/2023. TECHNIQUE: Contiguous axial imaging was performed from the skull base to vertex without intravenous administration of contrast. This CT examination was performed using dose optimization techniques as appropriate, variously including the following: *Automated exposure control *Adjustment of mA and/or kV according to patient size (this includes techniques or standardized protocols for targeted exams where dose is matched to indication/reason for exam; i.e. extremities or head) *Use of iterative reconstruction technique DLP: 690 mGy-cm FINDINGS: There is no evidence of acute intracranial hemorrhage or edematous territorial infarction. A few foci of hypoattenuation in the periventricular and deep white matter are consistent with mild microangiopathy. Portillo-white matter differentiation is preserved. Proportional prominence of the ventricles and sulcal spaces. No evidence for obstructive hydrocephalus. No abnormal mass effect or midline shift. No extra-axial fluid collections. No acute soft tissue or osseous abnormalities. The mastoid air cells and paranasal sinuses are clear. ? CT/CT head/brain wo IV con IMPRESSION: No evidence of acute intracranial hemorrhage or edematous territorial infarction. Dictated By: Bharti Stanley Signed By: Electronically signed by Bharti?Jaden 06/21/23 1713 Radiology Impression Discussion of test interpretation with radiology: I have reviewed the radiologist's reading. Independent Historian Clinical information obtained from an independent historian. History obtained from or confirmed by: EMS (EMS provided additional history and confirmed the history provided by the patient.) and Other (patient's family and the SNF provided additional history and confirmed the history provided by the patient.) External Record Review External record reviewed: Other (reviewed records from SNF) Prescription Management I considered prescription management with: Antibiotic (patient prescribed an antibiotic for conjunctivitis and preseptal cellulitis) Chronic Conditions Patient?s care impacted by: Other (CVA, cataract) Critical Care Time Critical Care Time Critical Care Time: Yes Total Critical Care Time: 40 Attestation: I spent 40 minutes of Critical Care Time with this patient. This does not include time spent on separately reported billable procedures. Discharge Plan Discharge Clinical Impression: Conjunctivitis, Periorbital cellulitis Patient Disposition: Home, Self-Care Instructions: Cellulitis (DC), Conjunctivitis (ED) Additional Instructions: Follow up with your primary care provider and an artificial plastic eye maker. Return to the emergency department immediately if your symptoms worsen or if you develop any dizziness, shortness of breath, difficulty breathing, chest pain, blurry vision, loss of vision, nausea, vomiting, abdominal pain, fever, chills, back pain, or any other complaints. Prescriptions: New erythromycin 5 mg/gram (0.5 %) ointment 0.5 inch ophthalmic (eye) Q4H Qty: 3.5 0RF clindamycin HCl 300 mg capsule 300 mg PO TID 7 Days Qty: 21 0RF No Action multivitamin Tablet 1 tab PO DAILY divalproex 250 mg Tablet,Delayed Release (Dr/Ec) 500 mg PO BID divalproex 250 mg Tablet,Delayed Release (Dr/Ec) 750 mg PO BEDTIME atorvastatin 10 mg Tablet 10 mg PO BEDTIME oxazepam 15 mg Capsule 15 mg PO BEDTIME tamsulosin 0.4 mg Capsule 0.4 mg PO BEDTIME finasteride 5 mg Tablet 5 mg PO DAILY Xarelto 15 mg Tablet 15 mg PO DAILY@1800 Rx Instructions: must administer with evening meal Referrals: [facility] Family Medicine [Provider Group] (Call to establish and follow up with a primary care provider. If you already have a primary care provider, please follow up with them.) [facility] Primary Care, [place] [Provider Group] (Call to establish and follow up with a primary care provider. If you already have a primary care provider, please follow up with them.) [facility] Primary Care,[facility] [Provider Group] (Call to establish and follow up with a primary care provider. If you already have a primary care provider, please follow up with them.) Russel Snyder [Physician] - (Call to establish and follow up with an artificial plastic eye maker.) Interventions: ED Discharge Assessment Last Done: 06/21/23 18:51 Discharge Date/Time: 06/21/23 18:52 Print Language: Croatian
[2023-06-21 16:39] VITALS: BP 103/43; BP 144/66; PULSE 65; PULSE 68; RESP 18; TEMP 36.5; O2SAT 98; O2SAT 99; BMI 32.3
[2023-06-21 16:58] VITALS: BMI 46.8
[2023-06-21 17:02] LABS: MANUAL DIFF FLAG NO
[2023-06-21 17:06] LABS: Basophils Absolute Auto 0.1 X10*3/uL (0.0-0.2); Basophils Percent Auto 0.5 % (0-2); Eosinophils Absolute Auto 0.1 X10*3/uL (0.0-0.4); Eosinophils Percent Auto 1.2 % (0-4); Hematocrit 37.8 % (42.0-52.0); Hemoglobin 11.9 g/dl (14.0-18.0); Imm Gran Abs Auto 0.06 X10*3/uL (0.00-0.03); Imm Gran Pct Auto 0.6 % (0.0-0.4); Lymphocytes Absolute Auto 4.8 X10*3/uL (1.2-4.9); Lymphocytes Percent Auto 44.9 % (20-40); Mean Corpuscular HGB Conc 31.5 g/dl (31.0-36.0); Mean Corpuscular Hemoglobin 29.1 pg (27.0-33.0); Mean Corpuscular Volume 92.4 fL (80.0-98.0); Mean Platelet Volume 9.3 fL (9.4-12.4); Monocytes Absolute Auto 1.3 X10*3/uL (0.1-1.2); Monocytes Percent Auto 11.9 % (2-11); Neutrophils Absolute Auto 4.3 x10*3/uL (2.0-8.3); Neutrophils Percent Auto 40.9 % (45-73); Platelet Count 221 X10*3/uL (160-400); Red Blood Count 4.09 X10*6/uL (4.60-5.80); Red Cell Distribution Width 15.5 % (11.0-16.0); White Blood Count 10.6 X10*3/uL (4.8-10.8)
--- NOTE | 2023-06-21 17:15 | PC.NURSE ---
provider notified of MD pura/Pa at bedside, STAT CT performed for concern of stroke, awaiting further orders. Labs obtained
--- NOTE | 2023-06-21 17:16 | MHC.EDTECH ---
Nurse Sanjuana will get the lact and cultures when the other IV is put in.
[2023-06-21 17:21] LABS: INTERNATIONAL NORM RATIO 0.9 (0.9-1.1); Prothrombin Time 11.5 SEC (11.1-13.3)
[2023-06-21 17:29] LABS: Alanine Aminotransferase 10 U/L (0-40); Albumin Level 3.4 g/dL (3.5-5.0); Alkaline Phosphatase 52 U/L (39-117); Anion Gap 11 (12-20); Aspartate Amino Transferase 15 U/L (5-37); Bilirubin Total 0.3 mg/dL (0.0-1.0); Blood Urea Nitrogen 19 mg/dL (9-16); C Reactive Protein 0.48 mg/dL (< or = 0.50); Carbon Dioxide 29 mmol/L (22-29); Chloride 106 mmol/L (96-108); Creatinine Clr Calc Pharmacy 112.4; Estimated Glomerular Filt Rate > 60; Glucose Random 86 mg/dL (60-115); Potassium 4.5 mmol/L (3.3-5.1); Sodium 141 mmol/L (135-145); Total Protein 7.1 g/dL (6.5-8.0)
[2023-06-21 17:59] LABS: Erythrocyte Sedimentation Rate 22 MM/HR (0-15)
--- NOTE | 2023-06-21 18:50 | PC.NURSE ---
report given to nurse at [facility] [phone].
== END 2023-06-21 18:52 | disposition home or self-care (01) ==
PROVIDERS: Physician Assistant Medical; Emergency Provider Internal Medicine
DX: H10.33 Unspecified acute conjunctivitis, bilateral (principal); L03.213 Periorbital cellulitis; R51.9 Headache, unspecified; Z79.899 Other long term (current) drug therapy
CPT/HCPCS: 36415; 70450; 80053; 83605; 85025; 85610; 85652; 85730; 86140; 87040; 99282; 99283